=== PATIENT | male | born 1950 | race Caucasian/White ===

== ENCOUNTER 2018-08-12 13:15 | Outpatient (REF) | payer MEDICARE, OTHER, SELFPAY ==
[2018-08-12 20:21] LABS: COMMENT (LAB VIEW ONLY) 99.29 mg/dL; Microalb ug/mg Crea 5.3 ug/mg Cr
== END 2018-08-12 13:35 ==
LOC: NCHCN 13:15
PROVIDERS: PCP Physician Assistant Medical; Visit Provider Physician Assistant Medical
DX: E11.9 Type 2 diabetes mellitus without complications (principal)
CPT/HCPCS: 82043; 82570

== ENCOUNTER 2020-11-24 18:45 | Outpatient (REF) | payer MEDICARE, OTHER, SELFPAY ==
[2020-11-24 18:52] LABS: COMMENT (LAB VIEW ONLY) 70.53 mg/dL; Microalb ug/mg Crea 4.4 ug/mg Cr
== END 2020-11-24 18:46 | disposition home or self-care (01) ==
LOC: NCHCN 18:45
PROVIDERS: PCP Physician Assistant Medical; Visit Provider Physician Assistant
DX: E11.9 Type 2 diabetes mellitus without complications (principal)
CPT/HCPCS: 82043; 82570

== ENCOUNTER 2021-02-21 21:42 | Outpatient (REF) | payer MEDICARE, OTHER, SELFPAY ==
[2021-02-21 17:34] LABS: Hemoglobin A1C 6.4 % (<5.7)
[2021-02-21 17:48] LABS: ALT 23 U/L (16-63); AST 16 U/L (15-37); Albumin 3.4 g/dL (3.4-5.0); Alkaline Phosphatase 54 U/L (46-116); Anion Gap 7.9 mmol/L (3-11); BUN 20 mg/dL (7-18); Bilirubin, Total 0.3 mg/dL (0.2-1.0); CO2 28.1 mmol/L (21.0-32.0); CREATININE 1.1 mg/dL (0.70-1.30); Calcium 8.2 mg/dL (8.5-10.1); Calculated LDL 52 mg/dL (<100); Chloride 105 mmol/L (98-107); Cholesterol 113 mg/dL (<200); Glucose 104 mg/dL (74-106); HDL Cholesterol 49 mg/dL (40-60); Sodium 141 mmol/L (136-145); Total Protein 7.1 g/dL (6.4-8.2); Triglyceride 61 mg/dL (<150)
== END 2021-02-21 21:43 | disposition home or self-care (01) ==
LOC: NCHCN 21:42
PROVIDERS: PCP Physician Assistant Medical; Visit Provider Nurse Practitioner Family
DX: E11.9 Type 2 diabetes mellitus without complications (principal); I10 Essential (primary) hypertension; E78.2 Mixed hyperlipidemia
CPT/HCPCS: 80053; 80061; 83036

== ENCOUNTER → 2021-04-07 14:15 | Outpatient (BNVA) | payer MEDICARE, OTHER, SELFPAY | PROVIDERS: PCP Physician Assistant; Referring Provider Physician Assistant Medical; Visit Provider Physical Therapy Assistant | DX: Z12.11 Encounter for screening for malignant neoplasm of colon (principal); E11.9 Type 2 diabetes mellitus without complications; I10 Essential (primary) hypertension ==

== ENCOUNTER 2021-04-21 09:57 | Day surgery (SDC) | payer MEDICARE, OTHER, SELFPAY ==
[2021-04-21 10:05] VITALS: BP 124/74; PULSE 56; RESP 18; TEMP 36.6; O2SAT 97
[2021-04-21] MEDS: Lactated Ringers 1,000 ML 80 ML IV (10:34)
--- NOTE | 2021-04-21 11:15 | W.ANESPRE ---
General Info Date of Service Date Performed: 04/21/21 Height: 6 ft Weight: 104.1 kg Body Mass Index (BMI): 31.1 Surgical Procedure: Operation Date: 04/21/21 10:50 Proposed Procedures Side Surgeon p Colonoscopy, POSSIBLE HEMORRHOID BANDING Lala Doty, DO Meds Allergies and Home Medications Allergies Allergy/AdvReac Type Severity Reaction Status Date / Time pollen extracts Allergy Intermediate Verified 04/21/21 10:13 Home Medication Medication Instructions Recorded albuterol sulfate 90 mcg/actuation 2 puff INHALATION Q6H PRN 01/04/21 aerosol inhaler calcium carbonate 200 mg calcium 200 mg PO QID 01/04/21 (500 mg) chewable tablet ferrous sulfate 325 mg (65 mg 325 mg PO DAILY 01/04/21 iron) tablet fluticasone propionate 50 1 spray INTRANASAL DAILY 01/04/21 mcg/actuation nasal spray,suspension hydrochlorothiazide 12.5 mg capsule 12.5 mg PO DAILY 01/04/21 naproxen sodium 220 mg tablet 220 mg PO BID PRN 01/04/21 omeprazole 20 mg capsule,delayed 20 mg PO DAILY 01/04/21 release rosuvastatin 20 mg tablet 20 mg PO DAILY 01/04/21 trolamine salicylate 10 % topical 1 applic TOPICAL DAILY PRN 01/04/21 cream bisacodyl 5 mg tablet,delayed 5 mg PO ONCE #4 tab 04/09/21 release polyethylene glycol 3350 17 238 g PO ONCE #238 g 04/09/21 gram/dose oral powder Current Visit Medications: Current Medications Generic Name Dose Route Start Last Admin Trade Name Freq PRN Reason Stop Dose Admin Hyoscyamine Sulfate 0.125 mg 04/21/21 10:39 Hyoscyamine 0.125 Mg Sl/Oral/Chew SL DIRECTED PRN Ringer's Solution 1,000 mls @ 80 mls/hr 04/21/21 06:00 04/21/21 10:34 IV 05/20/21 23:59 80 mls/hr INFUSION LEVI Administration IV Miscellaneous Supplies 1 each 04/21/21 06:00 Iv Access IV 05/20/21 23:59 DIRECTED LEVI Ondansetron HCl 4 mg 04/21/21 10:39 Ondansetron 4 Mg/2 Ml Vial IVP Q4H PRN PRN Nausea / Vomiting Sodium Chloride 0 ml 04/21/21 06:00 Normal Saline Flush 10 Ml Syr IV 05/20/21 23:59 PRN PRN Sodium Chloride 0 ml 04/21/21 06:00 Normal Saline 10 Ml Vial IJ 05/20/21 23:59 DIRECTED PRN Sterile Water 0 ml 04/21/21 06:00 Water,Injection,Sterile 10 Ml Vial IJ 05/20/21 23:59 DIRECTED PRN PFSH Medical History Medical History Actinic keratoses Arthritis Coronary arteriosclerosis Diabetes mellitus type II, controlled pt. denies this Diverticulosis Exercise induced bronchospasm pt. states he is unaware of this Hiatal hernia History of solar lentigo Hypertension Mixed hyperlipidemia Pain in right shoulder Restless leg syndrome Surgical History Surgical History (Updated 04/21/21 @ 10:09 by Amanda Amador) History of colonoscopy History of hernia repair Tobacco Smoking/Tobacco Use Status: Former Tobacco Use Alcohol Alcohol Intake: former Substance Use Substance use: Never Substance use type: does not use Vital Signs and Lab Results Vital Signs Most Recent Vital Signs in EMR: Most Recent Vital Signs Temp Pulse Resp BP Pulse Ox 36.6 C 56 L 18 124/74 97 04/21/21 10:05 04/21/21 10:05 04/21/21 10:05 04/21/21 10:05 04/21/21 10:05 Lab Results Blood Type / Crossmatch: No Data to Display Complete Blood Count: No Data to Display Complete Metabolic Panel: No Data to Display Liver Function Panel: No Data to Display Coagulation Panel: No Data to Display Cardiac Panel: No Data to Display Arterial Blood Gas: No Data to Display Venous Blood Gas: No Data to Display Pancreas Panel: No Data to Display Thyroid Panel: No Data to Display Infectious Disease: No Data to Display Blood Cultures: No Data to Display Toxicology Panel: No Data to Display Anesthesia Assessment and Plan Anesthesia History Personal History: No History of Anesthesia Complications Family History: No Family History of Anesthesia Complications Exercise Tolerance Exercise Tolerance: Metabolic Equivalents>4 Pertinent Negatives Pertinent Negatives: No Symptoms of GERD, No Major Cardiovascular Symptoms or Complaints, No Major Pulmonary Symptoms or Complaints and No History of CVA/TIA Cardiac & Pulmonary Exam Cardiac Exam: Normal S1/S2 Heart Sounds Pulmonary Exam: Clear Bilateral Breath Sounds Airway Exam Known Difficult Airway: No Mallampati Class: 1 Mouth Opening: Normal (> 3cm) Thyromental Distance: Greater than 3 cm Neck Range of Motion: Full ROM Neck Circumference: Normal Teeth Condition: Normal Dentition ASA Classification ASA Score: ASA 2 Emergency Case?: No NPO Status NPO Status: NPO Clears >2 hours, Solids >8 hours Anesthesia Plan Resuscitation Status: Full Code Anesthesia Technique: General Anesthesia Airway Planned: Natural Airway Monitors Used: Standard Monitors
[2021-04-21 11:30] VITALS: BMI 31.1
[2021-04-21 13:03] VITALS: BP 89/54; PULSE 49; RESP 14; TEMP 36.3; O2SAT 96
--- NOTE | 2021-04-21 13:08 | W.ANESPOSTOP ---
Postoperative Evaluation Date, Time and Location Date Performed: 04/21/21 Time Performed: 13:08 Patient Location: Day Surgery Unit Vital Signs Most Recent Imported Vital Signs: Most Recent Vital Signs Temp Pulse Resp BP Pulse Ox 36.3 C L 49 L 14 89/54 L 96 04/21/21 13:03 04/21/21 13:03 04/21/21 13:03 04/21/21 13:03 04/21/21 13:03 Pain Score Most Recent Pain Score: Most Recent Pain Score Pain Level 0 04/21/21 13:03 Assessment Mental Status: Arousable with meaningful communication Airway and Respiratory Function: Patent airway with normal (patient baseline) respiratory exam Cardiovascular Function: Hemodynamically Stable Hydration Status: Adequately Hydrated Nausea & Vomiting: No Nausea or Vomiting Pain: Pt. Denies Any Pain Peripheral Nerve Block: Patient did not receive a nerve block
--- NOTE | 2021-04-21 13:15 | DSE_ITS ---
Date of service: 04/21/21 Time of Service: 13:15 DS: Diagnosis Discharge Diagnosis (1) Adenomatous colon polyp: Status: Acute Discharge Plan Disposition Patient Disposition: HOME Condition: Good Discharge Details Reason For Visit: colon Attending Provider: Lala Doty Primary Care Provider: Esther Bianchi Home Meds and New Rx's Prescriptions: Continued calcium carbonate [Antacid (calcium carbonate)] 200 mg calcium (500 mg) tablet,chewable 200 mg PO QID RF: 0 naproxen sodium [Aleve] 220 mg tablet 220 mg PO BID PRNRF: 0 rosuvastatin 20 mg tablet 20 mg PO DAILY RF: 0 hydrochlorothiazide 12.5 mg capsule 12.5 mg PO DAILY RF: 0 omeprazole 20 mg capsule,delayed release(DR/EC) 20 mg PO DAILY RF: 0 albuterol sulfate [ProAir HFA] 90 mcg/actuation HFA aerosol inhaler 2 puff inhalation Q6H PRNRF: 0 ferrous sulfate 325 mg (65 mg iron) tablet 325 mg PO DAILY RF: 0 fluticasone propionate [Allergy Relief (fluticasone)] 50 mcg/actuation spray,suspension 1 spray intranasal DAILY RF: 0 trolamine salicylate [Asper-Flex] 10 % cream 1 applic topical DAILY PRNRF: 0 Discontinued bisacodyl [Dulcolax (bisacodyl)] 5 mg tablet,delayed release (DR/EC) 5 mg PO ONCE Qty: 4 RF: 0 polyethylene glycol 3350 17 gram/dose powder 238 g PO ONCE Qty: 238 RF: 0 Discharge Instructions Additional Instructions: DSU Colonoscopy Post- Op Instructions Instructions for Everyone who is given Anesthesia: For your safety, please do the following for the next twenty-four (24) hours: *Do Not operate a motor vehicle (car, truck, motorcycle, etc.) *Do Not drink alcoholic beverages or use any recreational drugs for the first 24 hours or while taking pain medications. The medications in your body may have a reaction that can be dangerous. *Do Not make any important decisions or sign any important papers. Findings: diverticular Dx. No polyps Follow up: Does not require any further colonoscopies unless develops problems with including: Persistent rectal bleeding, unexplained weight loss, change in bowel habits. -Follow a high-fiber diet and avoid straining to move your bowels-the 1. No lifting over 20 pounds or strenuous activity for the first 24 hours after your procedure. After 24 hours there are no restrictions on your activity but you may feel fatigued for a few days. 2. After you arrive home you may have a light meal and return to your normal diet as you can tolerate it without feeling sick to your stomach. 3. You may have a bloated, gaseous feeling in your belly (abdomen) after a colonoscopy. Passing gas and belching will help. Walking or lying down on your left side with your knees flexed may relieve the discomfort. Call the office at [phone] (Office) or [phone] (Hospital) right away if you notice any of the following: a.Vomiting of blood or ?coffee ground stools?. b.Rectal bleeding 1Tbsp, blood clots or continuous bleeding. c.Severe belly (abdominal) pain. d.A hard distended belly (abdomen) and an inability to pass gas. 4. Please don?t expect to have a normal BM (bowel movement) for 2-3 days after your procedure. 5. If there are questions regarding the findings of your procedure, please contact your doctor 6. If you are unable to contact your doctor with a problem, contact the hospital at [phone]. 7. Continue all your regular medications unless directed otherwise. I understand the above instructions and have no questions. Signature of Patient or Adult Escort Name of Responsible Adult Escort Signature of Nurse Date/Time Activity:: see above Diet:: see above Discharge Orders Discharge Orders: Discharge Order (Routine); Ordered 04/21/21 Ordered By: Lala Doty DS: Data Vitals/I&O Vitals and I&O: Vital Signs Temperature 36.3 C L 04/21/21 13:03 Pulse 49 L 04/21/21 13:03 Pulse Rhythm Regular 04/21/21 10:05 Respiratory Rate 14 04/21/21 13:03 Respiratory Depth Normal 04/21/21 10:05 Blood Pressure 89/54 L 04/21/21 13:03 Pulse Oximetry 96 04/21/21 13:03 Oxygen Delivery Method Room Air 04/21/21 13:03 Oxygen Flow Rate 0 04/21/21 10:05 Pain Level 0 04/21/21 13:03 Intake & Output 04/20/21 04/21/21 04/21/21 23:59 11:59 23:59 Intake Total 600 / 600 Balance 600 / 600 Weight 104.1 kg Intake: IV 600 / 600 Other: Emesis Description None PFSH Medical History (Updated 04/21/21 @ 13:16 by Lala Doty DO) Actinic keratoses Arthritis Coronary arteriosclerosis Diabetes mellitus type II, controlled pt. denies this Diverticulosis Exercise induced bronchospasm pt. states he is unaware of this Hiatal hernia History of solar lentigo Hypertension Mixed hyperlipidemia Pain in right shoulder Restless leg syndrome Surgical History (Updated 04/21/21 @ 10:09 by Amanda Amador) History of colonoscopy History of hernia repair Social History Smoking/Tobacco Use Status: Former Tobacco Use Quit Date: 10/07/92 Smoking risk assessment performed?: Yes Alcohol Intake: former Drug use: Never Substance use type: does not use Current gender identity: male Do you feel safe at home: Yes Do you feel safe in your relationship?: Yes
--- NOTE | 2021-04-21 13:21 | PDOC.DSDIS_ITS ---
Discharge Plan Disposition Patient Disposition: HOME Condition: Good Discharge Details Reason For Visit: colon Attending Provider: Lala Doty Primary Care Provider: Esther Bianchi Home Meds and New Rx's Prescriptions: Continued calcium carbonate [Antacid (calcium carbonate)] 200 mg calcium (500 mg) tablet,chewable 200 mg PO QID RF: 0 naproxen sodium [Aleve] 220 mg tablet 220 mg PO BID PRNRF: 0 rosuvastatin 20 mg tablet 20 mg PO DAILY RF: 0 hydrochlorothiazide 12.5 mg capsule 12.5 mg PO DAILY RF: 0 omeprazole 20 mg capsule,delayed release(DR/EC) 20 mg PO DAILY RF: 0 albuterol sulfate [ProAir HFA] 90 mcg/actuation HFA aerosol inhaler 2 puff inhalation Q6H PRNRF: 0 ferrous sulfate 325 mg (65 mg iron) tablet 325 mg PO DAILY RF: 0 fluticasone propionate [Allergy Relief (fluticasone)] 50 mcg/actuation spray,suspension 1 spray intranasal DAILY RF: 0 trolamine salicylate [Asper-Flex] 10 % cream 1 applic topical DAILY PRNRF: 0 Discontinued bisacodyl [Dulcolax (bisacodyl)] 5 mg tablet,delayed release (DR/EC) 5 mg PO ONCE Qty: 4 RF: 0 polyethylene glycol 3350 17 gram/dose powder 238 g PO ONCE Qty: 238 RF: 0 Discharge Instructions Additional Instructions: DSU Colonoscopy Post- Op Instructions Instructions for Everyone who is given Anesthesia: For your safety, please do the following for the next twenty-four (24) hours: *Do Not operate a motor vehicle (car, truck, motorcycle, etc.) *Do Not drink alcoholic beverages or use any recreational drugs for the first 24 hours or while taking pain medications. The medications in your body may have a reaction that can be dangerous. *Do Not make any important decisions or sign any important papers. Findings: diverticular Dx. No polyps Follow up: Does not require any further colonoscopies unless develops problems with including: Persistent rectal bleeding, unexplained weight loss, change in bowel habits. -Follow a high-fiber diet and avoid straining to move your bowels-the 1. No lifting over 20 pounds or strenuous activity for the first 24 hours after your procedure. After 24 hours there are no restrictions on your activity but you may feel fatigued for a few days. 2. After you arrive home you may have a light meal and return to your normal diet as you can tolerate it without feeling sick to your stomach. 3. You may have a bloated, gaseous feeling in your belly (abdomen) after a colonoscopy. Passing gas and belching will help. Walking or lying down on your left side with your knees flexed may relieve the discomfort. Call the office at [phone] (Office) or [phone] (Hospital) right away if you notice any of the following: a.Vomiting of blood or ?coffee ground stools?. b.Rectal bleeding 1Tbsp, blood clots or continuous bleeding. c.Severe belly (abdominal) pain. d.A hard distended belly (abdomen) and an inability to pass gas. 4. Please don?t expect to have a normal BM (bowel movement) for 2-3 days after your procedure. 5. If there are questions regarding the findings of your procedure, please contact your doctor 6. If you are unable to contact your doctor with a problem, contact the hospital at [phone]. 7. Continue all your regular medications unless directed otherwise. I understand the above instructions and have no questions. Signature of Patient or Adult Escort Name of Responsible Adult Escort Signature of Nurse Date/Time Activity:: see above Diet:: see above Discharge Orders Discharge Orders: Discharge Order (Routine); Ordered 04/21/21 Ordered By: Lala Doty DS: Diagnosis Discharge Diagnosis (1) Adenomatous colon polyp: Status: Acute
[2021-04-21 13:25] VITALS: BP 109/71; PULSE 50; RESP 16; TEMP 36.3; O2SAT 96
--- NOTE | 2021-04-21 23:35 | W.COLOREPORT ---
Date of service: 04/21/21 Time of Service: 12:35 Colonoscopy Report Date of procedure: 04/21/21 Pre-op diagnosis general: A. polyps Post-op diagnosis procedure note: other (divertic) Surgeon: Lala Doty Anesthesia Type: General:No Airway Estimated blood loss (mL): 0 Pathology: none sent Complications: None Disposition: same day Prep: Miralax/Dulcolax Retraction Time: 8 Procedure Description: After informed consent was obtained the patient was taken to the procedure room and placed in a left decubitous position. Monitors were applied and a time out was done. The patients name, date of , procedure, allergies to medications and metal in their body was reviewed. The patient was then sedated. Once sedated and comfortable a rectal exam was done. External exam was normal. Internal exam revealed a normal sphincter tone and no palpable masses. The scope was then introduced and retrofelexed. no internal hemorrhoids were identified. The scope was then advanced to the cecum w/out difficulty. The TI and appendiceal orifice were identified. The prep was adequate. There was adherent stools throught out the colon. this was extensively lavaged, but lesions <5mm coud be missed. No polyps are visualized today. . The scope was then slowly retracted over 8 minutes back into the rectum. he has moderate diverticular Dx confined to the sigmoid colon. There is no active bleeding orinfection. The scope was removed and the patient was woken up and taken back to Same day surgery in stable condition. The patient tolerated the procedure well and there were no immediate complications. Follow up: The patient does not require any further screening CE's, unless they develop changes in bowel habits or other new gastrointestinal complaints.
== END 2021-04-21 13:55 | disposition home or self-care (01) ==
PROVIDERS: PCP Physician Assistant; Visit Provider Surgery
PROC: 0DJD8ZZ Inspection of Lower Intestinal Tract, Via Natural or Artificial Opening Endoscopic (ICD-10-PCS; CPT 45378; principal; 2021-04-21 10:45)
DX: Z12.11 Encounter for screening for malignant neoplasm of colon (principal); K57.30 Diverticulosis of large intestine without perforation or abscess without bleeding; E11.9 Type 2 diabetes mellitus without complications
CPT/HCPCS: G0121

== ENCOUNTER 2021-06-01 04:05 | Outpatient (CLI) | payer MEDICARE, OTHER, SELFPAY ==
[2021-06-01] MEDS: Inhaler, Assist Device 1 EACH MC (14:16)
[2021-06-01] MEDS: Albuterol HFA 18 GM 200 PUFF INH IH (14:16)
--- NOTE | 2021-06-02 11:29 | W.PFT ---
Date of service: 06/01/21 Time of Service: 12:59 Pulmonary Function Test Result Requesting Provider Esther Bianchi Interpretation Spirometry: There is no airflow limitation. There is no significant bronchodilator response. Lung Volumes: Lung volumes are normal. Diffusion Capacity: Uncorrected diffusion is normal. Airway Pressure: Airways resistance is normal. Impression Normal pulmonary function tests. Clinical Correlation therefore is recommended.
== END 2021-06-01 04:06 | disposition home or self-care (01) ==
PROVIDERS: PCP Physician Assistant; Visit Provider Physician Assistant
DX: R06.02 Shortness of breath (principal)
CPT/HCPCS: 94060; 94726; 94729

== ENCOUNTER 2022-03-13 11:56 | Outpatient (REF) | payer MEDICARE, OTHER, SELFPAY ==
[2022-03-13 19:08] LABS: Anion Gap 7.1 mmol/L (3-11); BUN 15 mg/dL (7-18); CO2 27.9 mmol/L (21.0-32.0); CREATININE 1.1 mg/dL (0.70-1.30); Calcium 8.7 mg/dL (8.5-10.1); Chloride 103 mmol/L (98-107); Glucose 113 mg/dL (74-106); Potassium 4.2 mmol/L (3.5-5.1); Sodium 138 mmol/L (136-145)
[2022-03-13 20:04] LABS: COMMENT (LAB VIEW ONLY) 43.49 mg/dL; Microalb ug/mg Crea 6.4 ug/mg Cr
== END 2022-03-13 11:57 | disposition home or self-care (01) ==
LOC: NCHCN 11:56
PROVIDERS: PCP Physician Assistant; Visit Provider Physician Assistant
DX: E11.9 Type 2 diabetes mellitus without complications (principal)
CPT/HCPCS: 80048; 82043; 82570

== ENCOUNTER 2022-06-07 04:43 | Outpatient (RCR) | payer MEDICARE, OTHER, SELFPAY ==
[2022-06-07 12:17] LABS: Abs Immature Grans 0.01 10^3/uL (0.0-0.06); Absolute Basophil Count 0.03 10^3/uL (0.0-0.2); Absolute Eosinophil Count 0.16 10^3/uL (0.0-0.7); Absolute Lymphocyte Count 0.78 10^3/uL (1.2-3.4); Absolute Monocyte Count 0.55 10^3/uL (0.1-0.8); Absolute Neutrophil Count 3.33 10^3/uL (1.2-6.7); Basophils % 0.6; Eosinophils % 3.3; HCT 36.8 % (40.0-50.0); HGB 12.7 g/dL (13.5-17.5); Immature Grans % 0.2; MCHC 34.5 % (32.0-36.0); MCV 84 fL (80-95); MPV 10.7 fL (8.0-11.0); Monocytes % 11.3; Neutrophils % 68.6; Platelet Count 178 10^3/uL (130-400); RBC 4.38 10^6/uL (4.36-5.78); RDW 15.1 % (11.8-14.1); RDW-SD 46.3 fL; WBC 4.86 10^3/uL (4.4-10.8)
[2022-06-07 12:53] LABS: Ferritin 8 ng/mL (26-388); TSH 1.55 uIU/mL (0.36-3.74)
[2022-06-07 15:46] LABS: Iron 51 ug/dL (65-175); Total Iron Binding Capacity 324 ug/dL (250-450); Transferrin Sat 16 % (20-55)
[2022-06-15 10:56] LABS: Testosterone, Free 10.9 ng/dL (3.28-12.2); Testosterone, Total 485 ng/dL (240-950)
== END 2022-07-06 23:59 | disposition home or self-care (01) ==
LOC: INF 04:43
PROVIDERS: PCP Physician Assistant; Visit Provider Internal Medicine
DX: D64.9 Anemia, unspecified (principal); N40.1 Benign prostatic hyperplasia with lower urinary tract symptoms; R53.83 Other fatigue
CPT/HCPCS: 36415; 84153; 84402; 84403; 82728; 83540; 83550; 84443; 85025

== ENCOUNTER 2022-08-13 20:55 | Outpatient (REF) | payer MEDICARE, OTHER, SELFPAY ==
[2022-08-13 21:32] LABS: Bilirubin Negative (Negative); Blood Small (Negative); Clarity Clear (Clear); Glucose Negative (Negative); Ketones Negative (Negative); Leukocyte Esterase Negative (Negative); Nitrite Negative (Negative); Urobilinogen 0.2 EU/dL (Up TO 0.2)
[2022-08-13 21:45] LABS: Bacteria Negative HPF (Negative); C & S Indicated? No; Casts Negative LPF (Negative); Crystals Negative HPF (Negative); Epithelial Cells Rare HPF (Negative); Mucus Negative (Negative); WBC 0-2 HPF (0-5)
== END 2022-08-13 20:56 | disposition home or self-care (01) ==
LOC: LBN 20:55
PROVIDERS: PCP Physician Assistant; Visit Provider Internal Medicine
DX: D64.9 Anemia, unspecified (principal)
CPT/HCPCS: 81003; 81015

== ENCOUNTER → 2022-08-15 02:36 | Outpatient (CLI) | payer MEDICARE, SELFPAY ==
--- NOTE | 2022-08-15 | DI.RAD_ITS ---
Exam(s) XR CERVICAL SPINE COMP 4-5V EXAM: XR CERVICAL SPINE COMP 4-5V CLINICAL HISTORY: NECK PAIN. TECHNIQUE: 2D digital imaging was performed. Seven images were obtained. AP, odontoid, lateral and b ilateral oblique images were obtained. COMPARISON: No exams were available for comparison FINDINGS: The odontoid is intact. The lateral masses are well aligned. There is straightening of the normal ce rvical lordosis. There is disc space narrowing and endplate osteophytes at C5-C6. No acute fracture or subluxation is present. There is mild narrowing of the neural foramen at C5-C6 bilaterally. Hyper trophic changes of the facets are noted, left greater than right. The cervical thoracic junction is well maintained. The prevertebral soft tissues are unremarkable. Lung apices are clear. IMPRESSION: Cervical spondylosis most marked at the C5-C6 level. DATA REPOSITORY: RADIATION DOSE DELIVERED:
--- NOTE | 2022-08-15 | DI.RAD_ITS ---
Exam(s) XR LUMBAR SPINE COMPLETE EXAM: XR LUMBAR SPINE COMPLETE CLINICAL HISTORY: BACK PAIN. TECHNIQUE: 2D digital imaging was performed of the lumbar spine. Five images were obtained. AP, la teral, right oblique, left oblique and L5-S1 spot views were obtained. COMPARISON: No exams were available for comparison FINDINGS: BONES: No fracture or destructive lesion. There are endplate osteophytes at multiple levels of the elida mbar spine. Degenerative changes of the facets are seen at L4-5 and L5-S1. DISKS: Intervertebral disc spaces are maintained. ALIGNMENT: Lumbar spinal alignment is within normal limits. No spondylolysis or spondylolisthesis. SOFT TISSUE: Atherosclerosis is present. IMPRESSION: Lumbar spondylosis. DATA REPOSITORY: RADIATION DOSE DELIVERED:
== END ==
PROVIDERS: PCP Physician Assistant; Visit Provider Internal Medicine
DX: M47.816 Spondylosis without myelopathy or radiculopathy, lumbar region (principal); M47.812 Spondylosis without myelopathy or radiculopathy, cervical region
CPT/HCPCS: 72050; 72110

== ENCOUNTER 2022-10-15 16:02 | Outpatient (CLI) | payer MEDICARE, SELFPAY ==
[2022-10-15 14:44] LABS: Abs Immature Grans 0.02 10^3/uL (0.0-0.06); Absolute Basophil Count 0.03 10^3/uL (0.0-0.2); Absolute Eosinophil Count 0.16 10^3/uL (0.0-0.7); Absolute Lymphocyte Count 1.37 10^3/uL (1.2-3.4); Absolute Monocyte Count 0.81 10^3/uL (0.1-0.8); Absolute Neutrophil Count 3.97 10^3/uL (1.2-6.7); Basophils % 0.5; Eosinophils % 2.5; HCT 42.4 % (40.0-50.0); HGB 14.9 g/dL (13.5-17.5); Immature Grans % 0.3; Lymphocytes % 21.5; MCH 31.8 pg (27.0-33.0); MCHC 35.1 % (32.0-36.0); MCV 91 fL (80-95); MPV 10.1 fL (8.0-11.0); Monocytes % 12.7; Neutrophils % 62.5; Platelet Count 143 10^3/uL (130-400); RBC 4.68 10^6/uL (4.36-5.78); RDW 13.8 % (11.8-14.1); RDW-SD 45.5 fL; WBC 6.36 10^3/uL (4.4-10.8)
[2022-10-15 15:15] LABS: Ferritin 54 ng/mL (26-388)
[2022-10-15 16:31] LABS: Iron 149 ug/dL (65-175); Total Iron Binding Capacity 291 ug/dL (250-450); Transferrin Sat 51 % (20-55)
== END 2022-10-15 16:03 | disposition home or self-care (01) ==
LOC: LBO 16:03
PROVIDERS: PCP Physician Assistant; Visit Provider Internal Medicine
DX: D64.9 Anemia, unspecified (principal)
CPT/HCPCS: 36415; 82728; 83540; 83550; 85025

== ENCOUNTER 2022-10-31 08:56 | Outpatient (REF) | payer MEDICARE, SELFPAY | END 2022-11-01 08:01 | disposition home or self-care (01) | LOC: LBN 08:56 | PROVIDERS: PCP Physician Assistant; Visit Provider Internal Medicine | DX: D64.9 Anemia, unspecified (principal) | CPT/HCPCS: 82272 ==

== ENCOUNTER 2023-04-04 01:21 | Outpatient (CLI) | payer MEDICARE, SELFPAY ==
--- NOTE | 2023-04-04 09:00 | ETT_ITS ---
APPROVED REPORT Exam: Exercise Treadmill Patient Location: Out-Patient Room/Bed: Stress Nurse: Fely Basurto RN Ordering Provider:WINSTONArminda NAIR, Contact Number: [phone] BMI: 32.07 Baseline Rhythm: Sinus Bradycardia Comment: Prolonged TX interval Indications: SOB Medical History Medical History: HTN, Dyspnea, HLD, iron deficiency anemia, Cardiac Medications: Zolpidem, tamsulosin, hydrochlorathiazide, rosuvastatin Allergies: None known Cardiac Risk Factors: Family hx, HTN, HLD, Prediabetes, former smoker (quit 1992) Previous Cardiac Procedures: Cardiac cath 2015 Pretest Chest Pain Characteristics: None Exercise History: Physically active Physical Disabilities: None Lung Sounds: Clear to auscultation Heart Sounds: Regular Stress Test Details Test: Exercise stress testing was performed using a Murtaza protocol. Rest Stress HR Resting HR Supine: 48 bpm Max Heart Rate (APMHR): 146 bpm Resting HR Standin bpm Target HR (85% APMHR): 124 bpm Max HR Achieved: 86 bpm % of APMHR: 59 Recovery HR: 63 bpm HR response to stress: Normal HR response to stress BP Resting BP Supine: 146/84 mmHg Resting BP Standin/88 mmHg Max BP: 184/80 mmHg Recovery BP: 168/78 mmHg BP response to stress: Normal blood pressure response to stress. ECG Resting ECG: Sinus Bradycardia, 1st degree AV block Ectopy: None Comment: Stress ECG: Sinus Rhythm, 1st degree AV block ST Change: Nondiagnostic low heart rate Arrhythmia: None Recovery ECG: Sinus Rhythm, 1st degree AV block Recovery ST Change: Nondiagnostic low heart rate Recovery Arrhythmia: Rare PVC Clinical Reason for Termination: Lightheadedness, Dyspnea Stress Symptoms: mod-severe Lightheadedness (5/10), mod-severe dyspnea Exercise duration: 3 min21 sec Highest Stage Reached: Stage 2: 2.5 mph at 12% grade. Exercise capacity: 5.04 METs Angina Score: None Wong Treadmill Score: 2.7 Rate Pressure Product: [id number] Stress ECG Conclusion 1. Resting electrocardiogram showed first-degree AV block 2. Patient exercised on the Murtaza protocol and completed a workload of 5.04 METS 3. Blunted heart rate response to exercise. Peak heart rate achieved was 59% of predicted for age. Normal blood pressure response to exercise 4. The electrocardiographic portion of the test was nondiagnostic due to inadequate heart rate Wong Treadmill Score is 2.7 which is Moderate risk. Stress Test Summary STAGE Time (mins) Speed (mph) Grade (%) HR BP SpO2 SYMPTOMS METS Supine 48 164/88 98 Standing 49 146/84 98 1 3 1.7 10 73 148/84 Mod-severe lightheadedness (5/10), moderate- severe dyspnea 4.5 2 6 2.5 12 76 Mod-severe lightheadedness (5/10), moderate- severe dyspnea 7 1 min recovery 84 120/54 mod lightheadedness, moderate dyspnea 3 min recovery 66 184/80 98 Symptoms starting to resolve 6 min recovery 63 168/78 98 All symptoms resolved. ETT stopped due to moderate-severe lightheadedness reported by patient who requested to stop test. All stopped due to concern from staff regarding lightheadedness reported by patient.
== END 2023-04-04 01:41 ==
LOC: DI 01:21
PROVIDERS: PCP Physician Assistant; Visit Provider Internal Medicine
DX: R06.02 Shortness of breath (principal)
CPT/HCPCS: 93016; 93018; 93017

== ENCOUNTER 2023-04-24 08:15 | Outpatient (CLI) | payer MEDICARE, SELFPAY ==
[2023-04-24 08:26] LABS: Abs Immature Grans 0.01 10^3/uL (0.0-0.06); Absolute Basophil Count 0.03 10^3/uL (0.0-0.2); Absolute Eosinophil Count 0.16 10^3/uL (0.0-0.7); Absolute Lymphocyte Count 0.98 10^3/uL (1.2-3.4); Absolute Monocyte Count 0.55 10^3/uL (0.1-0.8); Absolute Neutrophil Count 2.84 10^3/uL (1.2-6.7); Basophils % 0.7; Eosinophils % 3.5; HCT 37.8 % (40.0-50.0); HGB 13.2 g/dL (13.5-17.5); Immature Grans % 0.2; Lymphocytes % 21.4; MCH 33.2 pg (27.0-33.0); MCHC 34.9 % (32.0-36.0); MCV 95 fL (80-95); MPV 10.5 fL (8.0-11.0); Neutrophils % 62.2; Platelet Count 120 10^3/uL (130-400); RBC 3.97 10^6/uL (4.36-5.78); RDW 12.7 % (11.8-14.1); RDW-SD 44.6 fL; WBC 4.57 10^3/uL (4.4-10.8)
[2023-04-24 09:21] LABS: ALT 25 U/L (16-63); AST 21 U/L (15-37); Albumin 3.2 g/dL (3.4-5.0); Alkaline Phosphatase 62 U/L (46-116); Anion Gap 6.5 mmol/L (3-11); BUN 17 mg/dL (7-18); Bilirubin, Total 0.3 mg/dL (0.2-1.0); CO2 27.5 mmol/L (21.0-32.0); Calcium 8.1 mg/dL (8.5-10.1); Chloride 109 mmol/L (98-107); Estimated GFR 78.98 (mL/min/1.73m2); Glucose 110 mg/dL (74-106); Sodium 143 mmol/L (136-145); Total Protein 6.9 g/dL (6.4-8.2)
[2023-04-24 11:04] LABS: Calculated LDL 44 mg/dL (<100); Cholesterol 105 mg/dL (<200); HDL Cholesterol 55 mg/dL (40-60); Triglyceride 34 mg/dL (<150)
== END 2023-04-24 08:16 | disposition home or self-care (01) ==
LOC: LBO 08:16
PROVIDERS: PCP Physician Assistant; Visit Provider Internal Medicine
DX: I10 Essential (primary) hypertension (principal); N40.0 Benign prostatic hyperplasia without lower urinary tract symptoms
CPT/HCPCS: 36415; 80053; 80061; 85025

== ENCOUNTER 2023-05-06 00:34 | Outpatient (CLI) | payer MEDICARE, SELFPAY ==
--- NOTE | 2023-05-06 | DI.NM_ITS ---
APPROVED REPORT Exam: Pharmacologic Patient Location: Out-Patient Room/Bed: Stress Nurse: Fely Basurto RN Ordering Provider:WINSTON KOREY, Contact Number: [phone] BMI: 32.07 Baseline Rhythm: Sinus Bradycardia Comment: Occasional PVC's Indications: Angina Medical History Medical History: Corany artriosclerosis, DMT2, diverticulosis, exercise induced bronchospasm, hiatal hernia, HTN, mixed hyperlipidemia, R shoulder pain Cardiac Medications: Rosuvastatin, naproxen, omerpazole, hydrochlorathiazide, ferrous sulfate, calciu m carbonate, albuterol sulfate Allergies: Pollen Cardiac Risk Factors: Family hx, HTN, HLD, former smoker, obesity Previous Cardiac Procedures: Cardiac cath x 8 years ago Pretest Chest Pain Characteristics: None Exercise History: Indeterminate Physical Disabilities: None Lung Sounds: Clear to auscultation Heart Sounds: Bradycardia Stress Test Details Test: Pharmacologic stress was paired with low level exercise. Reason for pharmacologic stress test: Low HR. Nuclear Acquisition: Rest Tc-99m/Stress Tc-99m 1 day Rest Isotope: Tc-99m Sestamibi. Dose: 12.0 Date: 05/06/2023 Injection Time: 0930 Stress Isotope: Tc-99m Sestamibi. Dose: 37.0 Date: 05/06/2023 Injection Time: 1104 HR Resting HR Supine: 46 bpm Max Heart Rate (APMHR): 146.360160 bpm Resting HR Standin bpm Target HR (85% APMHR): 124.734848 bpm Max HR Achieved: 86 bpm % of APMHR: 58.90 Recovery HR: 66 bpm HR response to stress: Normal HR response to stress BP Resting BP Supine: 122/70 mmHg Resting BP Standin/72 mmHg Max BP: 142/78 mmHg Recovery BP: 142/78 mmHg ECG Resting ECG: Sinus Bradycardia Ectopy: PVC's Stress ECG: Sinus Rhythm ST Change: Nondiagnostic low heart rate Arrhythmia: Occasional PVC's Recovery ECG: Sinus Bradycardia Recovery ST Change: Nondiagnostic low heart rate Recovery Arrhythmia: Occasional PVC's Clinical Stress Symptoms: 3/10 jaw pain Angina Score: None Rate Pressure Product: [id number] Stress ECG Conclusion 1. Resting electrocardiogram was within normal limits. 2. patient underwent testing using a combination of low-level exercise and pharmacologic stress with regadenoson 3. Peak heart rate achieved was 59% of predicted for age 4. Electrocardiographic portion of the test was nondiagnostic 5. See MPI report Stress Test Summary STAGE HR BP SpO2 Symptoms NOTES Supine 46 122/70 98 Standing 48 126/72 98 1 min post Lexiscan injection 67 132/76 92 3/10 jaw pain 3 min post Lexiscan injection 76 134/72 97 3/10 jaw pain 6 min post Lexiscan injection 66 142/78 97 All symptoms resolved. MPI Conclusion Myocardial perfusion is normal, no ischemia or evidence of prior infarction EF is 55% with normal wall motion Radiologist Interpretation Radiologist agrees with Stitch Wheeler's Interpretation. Radiologist Interpretation by: Tip Cerda MD Interpretation Date/Time: 05/08/2023 10:32:39
[2023-05-06] MEDS: Regadenoson 0.4 MG/5 ML SYR IVP (11:29)
== END 2023-05-06 00:54 ==
LOC: DI 00:34
PROVIDERS: PCP Physician Assistant; Visit Provider Internal Medicine
DX: I20.9 Angina pectoris, unspecified (principal)
CPT/HCPCS: 78452; 93016; 93018; 93017; J2785

== ENCOUNTER 2023-11-29 01:32 | Outpatient (CLI) | payer MEDICARE, SELFPAY ==
[2023-11-29 11:43] LABS: Abs Immature Grans 0.02 10^3/uL (0.0-0.06); Absolute Basophil Count 0.02 10^3/uL (0.0-0.2); Absolute Eosinophil Count 0.12 10^3/uL (0.0-0.7); Absolute Lymphocyte Count 0.78 10^3/uL (1.2-3.4); Absolute Neutrophil Count 3.76 10^3/uL (1.2-6.7); Basophils % 0.4; Eosinophils % 2.3; HCT 39.1 % (40.0-50.0); HGB 13.5 g/dL (13.5-17.5); Immature Grans % 0.4; Lymphocytes % 14.7; MCH 32.3 pg (27.0-33.0); MCHC 34.5 % (32.0-36.0); MCV 94 fL (80-95); MPV 9.6 fL (8.0-11.0); Monocytes % 11.3; Neutrophils % 70.9; Platelet Count 148 10^3/uL (130-400); RBC 4.18 10^6/uL (4.36-5.78); RDW 13.2 % (11.8-14.1); Reticulocyte 2.1 % (0.5-2.4)
[2023-11-29 11:47] LABS: Bilirubin Negative (Negative); Blood Trace-intact (Negative); Clarity Clear (Clear); Glucose Negative (Negative); Ketones Negative (Negative); Leukocyte Esterase Negative (Negative); Nitrite Negative (Negative); Urobilinogen 0.2 mg/dL (Up to 0.2)
[2023-11-29 12:02] LABS: Bacteria Negative HPF (Negative); C & S Indicated? No; Crystals Negative HPF (Negative); RBC 0-2 HPF (0-2)
[2023-11-29 12:35] LABS: Iron 88 ug/dL (65-175); Total Iron Binding Capacity 264 ug/dL (250-450); Transferrin Sat 33 % (20-55)
[2023-11-29 12:37] LABS: ALT 26 U/L (16-63); AST 18 U/L (15-37); Albumin 3.3 g/dL (3.4-5.0); Alkaline Phosphatase 57 U/L (46-116); Anion Gap 7.8 mmol/L (3-11); BUN 15 mg/dL (7-18); Bilirubin, Total 0.4 mg/dL (0.2-1.0); CO2 29.2 mmol/L (21.0-32.0); CREATININE 1.1 mg/dL (0.70-1.30); Calcium 8.9 mg/dL (8.5-10.1); Chloride 101 mmol/L (98-107); Estimated GFR 70.44 (mL/min/1.73m2); Ferritin 61 ng/mL (26-388); Glucose 127 mg/dL (74-106); Potassium 4.5 mmol/L (3.5-5.1); Sodium 138 mmol/L (136-145); TSH 2.03 uIU/mL (0.36-3.74); Total Protein 7.3 g/dL (6.4-8.2)
[2023-12-02 10:46] LABS: Haptoglobin 216 mg/dL (32-197)
[2023-12-02 14:15] LABS: Albumin 52.8 % (55.8-66.1); Albumin g/dL 3.6 g/dL (3.6-5.2); Immunotyping, Serum (See Note); Monoclonal Spike 13.7 % (None Seen); Monoclonal Spike g/dL 0.9 g/dL (None Seen); Total Protein 6.9 g/dL (6.3-8.2)
[2023-12-02 14:29] LABS: Homocysteine 13.3 umol/L (5.0-13.9)
[2023-12-02 15:22] LABS: ANA Interpretation Negative (Negative)
[2023-12-02 17:42] LABS: Phospholipid Ab, IgG <9.4 GPL; Phospholipid Ab, IgM <9.4 MPL
[2023-12-04 12:54] LABS: Methylmalonic Acid 0.41 nmol/mL (<=0.40)
[2023-12-04 15:25] LABS: GPIIb/IIIa (Cell-1) Negative; GPIIb/IIIa (Cell-2) Negative; GPIV Negative; GPIa/IIa (Cell-1) Negative; GPIa/IIa (Cell-2) Negative; GPIb/IX Negative; HLA Class I Negative; IVIg in last month? No; Overall Result Negative; Platelet Count x 10(9)/L ? 148; Plt Transfusion in last 72hrs? No
== END 2023-11-29 01:33 | disposition home or self-care (01) ==
LOC: LBO 01:33
PROVIDERS: PCP Physician Assistant; Visit Provider Internal Medicine
DX: D69.6 Thrombocytopenia, unspecified (principal); D64.9 Anemia, unspecified
CPT/HCPCS: 36415; 80053; 80186; 83090; 86022; 86147; 81003; 81015; 82728; 83010; 83540; 83550; 84155; 84165; 84443; 85025; 85045; 86038; 86320

== ENCOUNTER 2024-01-15 05:43 | Outpatient (CLI) | payer MEDICARE, SELFPAY ==
[2024-01-15 12:27] LABS: Abs Immature Grans 0.02 10^3/uL (0.0-0.06); Absolute Basophil Count 0.03 10^3/uL (0.0-0.2); Absolute Eosinophil Count 0.17 10^3/uL (0.0-0.7); Absolute Lymphocyte Count 0.93 10^3/uL (1.2-3.4); Absolute Monocyte Count 0.61 10^3/uL (0.1-0.8); Absolute Neutrophil Count 3.19 10^3/uL (1.2-6.7); Basophils % 0.6; Eosinophils % 3.4; HCT 39.9 % (40.0-50.0); Immature Grans % 0.4; Lymphocytes % 18.8; MCH 32.7 pg (27.0-33.0); MCHC 35.1 % (32.0-36.0); MCV 93 fL (80-95); MPV 10.2 fL (8.0-11.0); Monocytes % 12.3; Neutrophils % 64.5; Platelet Count 141 10^3/uL (130-400); RBC 4.28 10^6/uL (4.36-5.78); RDW 12.9 % (11.8-14.1); RDW-SD 44.1 fL; WBC 4.95 10^3/uL (4.4-10.8)
[2024-01-15 13:16] LABS: Hemoglobin A1C 6.2 % (<5.7)
== END 2024-01-15 05:44 | disposition home or self-care (01) ==
LOC: LBO 05:43
PROVIDERS: PCP Physician Assistant; Visit Provider Internal Medicine
DX: E11.9 Type 2 diabetes mellitus without complications (principal); D51.8 Other vitamin B12 deficiency anemias
CPT/HCPCS: 36415; 83036; 85025

== ENCOUNTER 2024-06-02 11:12 | Emergency (ER) | payer MEDICARE, SELFPAY ==
[2024-06-02] VITALS (17 sets, daily range): BP systolic 114–169; BP diastolic 54–87; PULSE 52–68; RESP 12–24; TEMP 36.8; O2SAT 97–99
--- NOTE | 2024-06-02 11:00 | RT.EKG_ITS ---
APPROVED REPORT Exam: Resting ECG Reason for Exam: chest pain/sob Patient Location: E HR:58 bpm ECG Measurements Heart Rate 58 AXIS FL 219 P 37 QRSd 105 QRS 77 QT 459 T 28 QTc 450 Conclusion Sinus bradycardia...rate< 60 Ventricular premature complex...V complex w/ short R-R interval Borderline prolonged FL interval...FL >212, V-rate 50- 90
--- NOTE | 2024-06-02 11:32 | ED.GENADUL_ITS ---
Discharge Plan Disposition Patient Disposition: Home Condition: Stable Discharge Details Clinical Impression: Chest pain Primary Care Provider: Esther Bianchi ED Provider: Surjit Rothman Home Meds and New Rx's Prescriptions: Continued naproxen sodium [Aleve] 220 mg tablet 220 mg PO BID PRN rosuvastatin 20 mg tablet 20 mg PO DAILY hydrochlorothiazide 12.5 mg capsule 12.5 mg PO DAILY omeprazole 20 mg capsule,delayed release(DR/EC) 40 mg PO BID ferrous sulfate 325 mg (65 mg iron) tablet 325 mg PO DAILY montelukast [Singulair] 10 mg tablet 10 mg PO DAILY tamsulosin [Flomax] 0.4 mg capsule 0.4 mg PO DAILY Edluar 10 mg tablet, sublingual 10 mg sublingual QHS Discharge Instructions Additional Instructions: Your blood work and CAT scan did not show any concerning findings Follow-up with your primary care provider If you feel more ill, have severe worsening pain or difficulty breathing return to the emergency department for reevaluation HPI General Mode of arrival: ambulatory . Date/Time Provider Initiated Documentation: 06/02/24 11:14 . Limitations to Documentation: no limitations . Information obtained by: patient . History of Present Illness 74 year old M presents to the emergency department with the chief complaint of chest pain, described as moderate, Quality is described as stabbing, and is localized to the chest. Patient reports no radiation. Patient started experiencing this hour(s) (12) and it has been intermittent. No relieving factors improve symptom(s), No exacerbating factors reported . Patient notes no other symptoms.. Patient did receive the following treatments prior to arrival, none Related Data Home Medications ?Medication ?Instructions ?Recorded ?Confirmed ferrous sulfate 325 mg (65 mg 325 mg PO DAILY 01/04/21 06/02/24 iron) tablet hydrochlorothiazide 12.5 mg capsule 12.5 mg PO DAILY 01/04/21 06/02/24 naproxen sodium 220 mg tablet 220 mg PO BID PRN 01/04/21 06/02/24 (Aleve) omeprazole 20 mg capsule,delayed 40 mg PO BID 01/04/21 06/02/24 release rosuvastatin 20 mg tablet 20 mg PO DAILY 01/04/21 06/02/24 montelukast 10 mg tablet 10 mg PO DAILY 06/02/24 06/02/24 (Singulair) tamsulosin 0.4 mg capsule (Flomax) 0.4 mg PO DAILY 06/02/24 06/02/24 zolpidem 10 mg sublingual tablet 10 mg sublingual QHS 06/02/24 06/02/24 (Edluar) Allergies Allergy/AdvReac Type Severity Reaction Status Date / Time pollen extracts Allergy Intermediate Unknown Verified 06/02/24 11:21 General Stated Complaint: Chest Pain DENICE: 2 Review of Systems All systems reviewed & are unremarkable except as noted in HPI and below Constitutional Constitutional: Denies chills, Denies fever(s) and Denies weakness Cardiovascular Cardiovascular: Reports chest pain and Denies dyspnea Respiratory Respiratory: Denies cough and Denies dyspnea Gastrointestinal Gastrointestinal: Denies abdominal pain, Denies nausea and Denies vomiting Musculoskeletal Musculoskeletal: Denies joint swelling Neurologic Neurologic: Denies weakness Exam Const General: no acute distress Orientation: alert HENMT Head: normal to inspection Ears: external ears normal General nose exam: external nose normal Mouth: moist mucous membranes Eyes General: appearance normal, both eyes and all related structures Neck Neck: normal visual inspection Resp Effort & Inspection: normal respiratory effort and able to speak in complete sentences Auscultation: clear to auscultation bilaterally Cardio Jugular venous pressure: no JVD Rate: regular rate Skin General skin exam: no rashes or lesions noted Neuro General: patient alert and patient oriented x3 Extrem General: normal to inspection Psych Mental Status: mental status grossly normal Course Vital Signs Vital signs: Vital Signs Temperature 36.8 C 06/02/24 11:17 Pulse 60 06/02/24 11:17 Respiratory Rate 12 06/02/24 11:17 Blood Pressure 169/87 H 06/02/24 11:17 Pulse Oximetry 98 06/02/24 11:17 Temperature 36.8 C 06/02/24 11:17 Temperature Source Oral 06/02/24 11:17 Pulse 60 06/02/24 11:17 Respiratory Rate 12 06/02/24 11:17 Blood Pressure 169/87 H 06/02/24 11:17 Blood Pressure Position Sitting 06/02/24 11:17 Pulse Oximetry 98 06/02/24 11:17 Oxygen Delivery Method Room Air 06/02/24 11:17 Oxygen Flow Rate 0 06/02/24 11:17 Pain Level 0 06/02/24 11:17 Medical Decision Making 74-year-old male with history of hypertension, hyperlipidemia comes in with intermittent sharp anterior chest pain since last night. Denies any vomiting, diaphoresis, difficulty breathing. He currently has no pain. He appears well speaking in full sentences. He has clear lung sounds, no murmurs, soft nontender abdomen. SuspectThis could be chest wall pain with given his age and risk factors we will obtain a CBC, CMP, troponin given the pain is sharp will obtain CTA of chest for PE. Has no tearing back pain so doubt dissection and has equal peripheral pulses Labs and imaging unremarkable, patient asymptomatic, will obtain delta troponin. Delta troponin negative, patient stable and asymptomatic. Discussed results with him and given reassuring workup feel he is stable for discharge and can follow-up with his PCP and return precautions given Differential Diagnosis Differential Diagnosis: nstemi, chest wall pain, pe Medical Records Medical records reviewed: Yes I reviewed the patient's medical records. Lab Data Lab results reviewed: Yes I reviewed the patient's lab results. ECG Data Attestation: I personally reviewed and interpreted this ECG (s) as follows: Prior ECG tracings: not available for review Interpretation: sinus bradycardia, rate of 58 no stemi Quality:SDOH Health Related Social Needs: No Data to Display PFSH All Active Problems (Updated 06/02/24 @ 13:56 by Surjit Rothman MD) Chest pain (Acute) Diverticulosis (Acute) Adenomatous colon polyp (Acute) Medical History (Updated 06/02/24 @ 13:56 by Surjit Rothman MD) Coronary arteriosclerosis Mixed hyperlipidemia Hypertension Hiatal hernia Exercise induced bronchospasm pt. states he is unaware of this Restless leg syndrome Arthritis Diabetes mellitus type II, controlled pt. denies this Pain in right shoulder History of solar lentigo Actinic keratoses Surgical History (Updated 05/17/21 @ 15:02 by Jaja Herndon RN) History of colonoscopy (~04/21/21) History of hernia repair Social History Smoking/Tobacco Use Status: Former Tobacco Use Quit Date: 10/07/92 Smoking risk assessment performed?: Yes Alcohol Intake: former Drug use: Never Substance use type: does not use Housing: house Do you feel safe at home: Yes Do you feel safe in your relationship?: Yes
[2024-06-02 11:42] LABS: Abs Immature Grans 0.01 10^3/uL (0.0-0.06); Absolute Basophil Count 0.02 10^3/uL (0.0-0.2); Absolute Eosinophil Count 0.05 10^3/uL (0.0-0.7); Absolute Lymphocyte Count 0.67 10^3/uL (1.2-3.4); Absolute Monocyte Count 0.57 10^3/uL (0.1-0.8); Absolute Neutrophil Count 3.94 10^3/uL (1.2-6.7); Basophils % 0.4 %; HCT 41.1 % (40.0-50.0); HGB 14.3 g/dL (13.5-17.5); Immature Grans % 0.2 %; Lymphocytes % 12.7 %; MCH 32.4 pg (27.0-33.0); MCHC 34.8 % (32.0-36.0); MCV 93 fL (80-95); MPV 10.2 fL (8.0-11.0); Monocytes % 10.8 %; Neutrophils % 74.9 %; Platelet Count 142 10^3/uL (130-400); RBC 4.41 10^6/uL (4.36-5.78); RDW 12.3 % (11.8-14.1); RDW-SD 42.6 fL; WBC 5.26 10^3/uL (4.4-10.8)
[2024-06-02 11:55] LABS: INR 1.1 (0.9-1.1); PTT Activated 24.6 sec (23.6-32.8)
[2024-06-02 12:08] LABS: ALT 22 U/L (16-63); AST 19 U/L (15-37); Albumin 3.3 g/dL (3.4-5.0); Alkaline Phosphatase 58 U/L (46-116); Anion Gap 7.8 mmol/L (3-11); BUN 15 mg/dL (7-18); Bilirubin, Total 0.54 mg/dL (0.2-1.0); CO2 27.2 mmol/L (21.0-32.0); CREATININE 1.1 mg/dL (0.70-1.30); Calcium 8.8 mg/dL (8.5-10.1); Chloride 103 mmol/L (98-107); Estimated GFR 70.01 (mL/min/1.73m2); Glucose 122 mg/dL (74-106); Magnesium 1.9 mg/dL (1.8-2.4); Potassium 4.1 mmol/L (3.5-5.1); Sodium 138 mmol/L (136-145); TSH (W/Ref FT4) 2.04 uIU/mL (0.36-3.74); Total Protein 7.4 g/dL (6.4-8.2); Troponin I < 50 ng/L (< or =60)
--- NOTE | 2024-06-02 12:49 | DI.CT_ITS ---
Exam(s) CT CHEST PE CTA EXAM: CT CHEST PE CTA CLINICAL HISTORY: chest pain. TECHNIQUE: Imaging Protocol: CT angiography of the chest was performed using pulmonary embolus kourtney col. Multi planar reconstructions were performed. CONTRAST MATERIAL: Intravenous: Omnipaque 350 Contrast volume: 100 cc COMPARISON: No exams were available for comparison FINDINGS: CHEST: PULMONARY ARTERIES: There are no intraluminal filling defects to suggest acute pulmonary emboli. LUNGS: There are no infiltrates nor evidence of pulmonary infarction.. There are no pleural effusions . MEDIASTINUM: There is no hilar nor mediastinal adenopathy. Visualized thyroid unremarkable. CARDIAC: Heart size is upper normal. There is no pericardial effusion.Caliber of the thoracic aorta is within normal limits. There is no evidence of aortic dissection. There is no significant shift of the interventricular septum. PARTIALLY VISUALIZED UPPERMOST ABDOMEN: No obvious findings OSSEOUS: No significant osseous lesions.. IMPRESSION: 1. No evidence of acute pulmonary emboli. No evidence of pulmonary infarction. No infiltrates. No pleural effusions. No intrathoracic adenopathy. 2. No evidence of aortic dissection nor pericardial effusion. Heart size is normal. Report called by myself to ER physician 06/02/2024 1:15 p.m. RADIATION DOSE DELIVERED: 214.03mGy.cm Total DLP DATA REPOSITORY: All CT scans at this facility are submitted to the National Radiology Data Registry (NRDR) Dose Index Registry (DIR) with the [employer] (ACR). RADIATION OPTIMIZATION: All CT scans at this facility use at least one of these dose optimization te chniques: automated exposure control; mA and/or kV adjustment per patient size (includes targeted exa ms where dose is matched to clinical indication); or iterative reconstruction.
[2024-06-02] MEDS: Omnipaque 350 MG/ML 100 ML BTL IJ (12:50)
[2024-06-02] MEDS: Normal Saline - Diluent 50 ML VIAL IJ (12:51)
--- OUTSIDE RECORDS SUMMARY | 2024-06-02 14:32 | XMS_ITS | Clinical Summary ---
Author Organization [facility] Address [address] [place] [address] Care Team Providers Care Cutter Grind Tool Technician Name Role Phone Unknown, Provider Primary Care Provider + [phone] Allergies No known active allergies Medications Medication Sig Dispensed Refills Start Date End Date Status rosuvastatin (CRESTOR) 20 mg tablet Take 20 mg by mouth daily. Active hydroCHLOROthiazide (HYDRODIURIL) 12.5 mg tablet Take 12.5 mg by mouth daily. Active Omeprazole 20 mg tablet,delayed release (DR/EC) Take by mouth. Active calcium carbonate (TUMS) 200 mg calcium (500 mg) tablet,chewable Take 1 Tab by mouth 4 times daily as needed. Active Social History Tobacco Use Types Packs/Day Years Used Date Smoking Tobacco: Former Cigarettes Q uit: 05/22/1995 Smokeless Tobacco: Never Interpersonal Safety Answer Date Record ed Physically Hurt Never 05/22/2020 Verbally Threaten Not on file 05/22/2020 Sex and Gender Information Value Date Recorded Sex Assigned at Not on file Gender Identity Not on file Sexual Orientation Not on file Obstetrics History Last Filed Vital Signs Vital Sign Reading Time Taken Comments Blood Pressure - - Pulse 60 05/22/2020 1415 EDT Temperature 36.7 ??C (98 ??F) 05/22/2020 1415 EDT Respiratory Rate - - Oxygen Saturation 98% 05/22/2020 1415 EDT Inhaled Oxygen Concentration - - Weight - - Height - - Body Mass Index - - Plan of Treatment Health Maintenance Due Date Last Done Comments Hepatitis C Screen 1950 RSV Immunization ( o r 60+ Years) (1 - 1-dose 60+ series) 2009 Fall Risk Screening 2014 COVID-19 Vaccine (2022-24 season) 2023 Care Teams Cutter Grind Tool Technician Relationship Specialty Start Date End Date Unknown, Provider, PCP - General 05/22/20
--- OUTSIDE RECORDS SUMMARY | 2024-06-02 14:32 | XMS_ITS | Referral Summary ---
Author Organization [facility] Address [address] [place] [address] Care Team Providers Care Patch Finisher Name Role Phone Unknown, Provider Primary Care Provider + [phone] Allergies No known active allergies Medications Medication [...] on file Sexual Orientation Not on file Last Filed Vital Signs Vital Sign Reading Time Taken Comments Blood Pressure - - Pulse 60 05/22/2020 1415 EDT Temperature 36.7 ??C (98 ??F) 05/22/2020 1415 EDT Respiratory Rate - - Oxygen Saturation 98% 05/22/2020 1415 EDT Inhaled Oxygen Concentration - - Weight - - Height - - Body Mass Index - - Plan of Treatment Not on file Care Teams Patch Finisher Relationship Specialty Start Date End Date Unknown, Provider, PCP - General 05/22/20
--- OUTSIDE RECORDS SUMMARY | 2024-06-02 14:32 | XMS_ITS | Encounter Summary ---
Author Organization [facility] Address [address] [place] [address] Care Team Providers Care Metal Off Bearer Name Role Phone Unknown, Provider Primary Care Provider Encounter Details Date Type Department Care Team (Late st Contact Info) Description 11/29/2023 Lab Requisition [facility] Pathology & Laboratory Medicine - [facility] [address] [place] [address] Outr Resulting Lab, Provider Social History Tobacco Use Types Packs/Day Years Used Date Smoking Tobacco: Former Cigarettes Q uit: 05/22/1995 Smokeless Tobacco: Never Interpersonal Safety Answer Date Record ed Physically Hurt Never 05/22/2020 Verbally Threaten Not on file 05/22/2020 Sex and Gender Information Value Date Recorded Sex Assigned at Not on file Gender Identity Not on file Sexual Orientation Not on file documented as of this encounter Plan of Treatment Not on file documented as of this encounter Procedures Procedure Name Priority Date/Time Associated Diagnosis Comments SPEP WITH IMMUNOTYPING PERFORMABLE Today 11/29/2023 11:25 EST SPEP WITH IMMUNOTYPING Today 11/29/2023 11:25 EST ANTI NUCLEAR AB (IAN), IFA Today 11/29/2023 11:25 EST PROTEIN, TOTAL Today 11/29/2023 11:25 EST HOMOCYSTEINE Today 11/29/2023 11:25 EST HAPTOGLOBIN Today 11/29/2023 11:25 EST documented in this encounter Results * (ABNORMAL) SPEP WITH IMMUNOTYPING PERFORMABLE (11/29/2023 11:25 [facility]) Albumin % 52.8(L) 55.8 - 66.1 % 12/02/2023 14:11 [facility] Albumin g/dL 3.6 3.6 - 5.2 g/dL 12/02/2023 14:11 [facility] Alpha-1 % 3.9 2.9 - 4.9 % 12/02/2023 14:11 [facility] Alpha-1 g/dL 0.30 0.15 - 0.40 g/dL 12/02/2023 14:11 [facility] Alpha-2 % 12.4(H) 7.1 - 11.8 % 12/02/2023 14:11 [facility] Alpha-2 g/dL 0.90 0.50 - 1.00 g/dL 12/02/2023 14:11 [facility] Beta % 9.0 8.4 - 13.1 % 12/02/2023 14:11 [facility] Beta g/dL 0.60 0.60 - 1.20 g/dL 12/02/2023 14:11 [facility] Gamma % 21.9(H) 11.1 - 18.8 % 12/02/2023 14:11 [facility] Gamma g/dL 1.50 0.60 - 1.60 g/dL 12/02/2023 14:11 [facility] Monoclonal Prakash % 13.7(H) None Seen % 12/02/2023 14:11 [facility] Monoclonal Prakash g/dL 0.9(H) None Seen g/dL 12/02/2023 14:11 [facility] SPEP Comment Suspicious pattern, immunotyping to follow. 12/02/2023 14:11 [facility] Comment:See scanned/suppleme ntary report. 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 Recommend clinical correlation. Reviewed by: Sulaiman Liz MD 12/02/2023 1329 12/02/2023 14:11 EST [facility] Total Protein 6.9 6.3 - 8.2 g/dL 12/02/2023 14:11 EST [facility] Blood VENOUS BLOOD / Unknown 11/29/2023 11:25 EST 11/29/2023 17:11 EST Provider Outr Resulting Lab CHEMISTRY & BLOOD GAS ORDERABLES Performing Organization Address [facility] Co de Phone Number [facility] [address] [place] [address] * PROTEIN, TOTAL (11/29/2023 11:25 EST) Blood VENOUS BLOOD / Unknown 11/29/2023 11:25 EST 11/29/2023 17:11 EST Provider Outr Resulting Lab CHEMISTRY & BLOOD GAS ORDERABLES Performing Organization Address [facility] Co de Phone Number [facility] [address] [place] [address] * HOMOCYSTEINE (11/29/2023 11:25 EST) Homocysteine 13.3 5.0 - 13.9 umol/L 12/02/2023 14:25 EST [facility] Blood VENOUS BLOOD / Unknown 11/29/2023 11:25 EST 11/29/2023 17:21 EST Narrative [facility] - 12/02/2023 14:25 EST Reference range may not apply to non-fasting samples. ??It is not recommended that EDTA plasma and serum from the same patient be used interchangeably. ??Serum concentrations have been observed to be up to 10% higher than EDTA plasma. Reference range may not apply to serum results. Provider Outr Resulting Lab CHEMISTRY & BLOOD GAS ORDERABLES Performing Organization Address [facility] Co de Phone Number [facility] [address] [place] [address] * (ABNORMAL) HAPTOGLOBIN (11/29/2023 11:25 EST) Haptoglobin 216(H) 32 - 197 mg/dL 12/02/2023 10:41 EST [facility] Blood VENOUS BLOOD / Unknown 11/29/2023 11:25 EST 11/29/2023 17:11 EST Provider Outr Resulting Lab CHEMISTRY & BLOOD GAS ORDERABLES Performing Organization Address [facility] Co de Phone Number [facility] [address] [place] [address] * ANTI NUCLEAR AB (IAN), IFA (11/29/2023 11:25 EST) IAN Interpretation Negative Negative 2023 15:19 EST [facility] Comment:No titer performed, IAN Screen is negative. Blood VENOUS BLOOD / Unknown 11/29/2023 11:25 EST 11/29/2023 17:11 EST Narrative [facility] - 12/02/2023 15:19 EST Results were obtained with the INOVA NOVA Lite HEp-2 IAN Kit by indirect immunofluorescence. Provider Outr Resulting Lab IMMUNOLOGY A ND SEROLOGY ORDERABLES Performing Organization Address [facility] Co de Phone Number [facility] [address] [place] [phone] documented in this encounter Visit Diagnoses Not on filedocumented in this encounter Care Teams Metal Off Bearer Relationship Specialty Start Date End Date Unknown, Provider, PCP - General 05/22/20 documented as of this encounter
--- OUTSIDE RECORDS SUMMARY | 2024-06-02 14:32 | XMS_ITS | Encounter Summary ---
Author Organization [facility] Address [address] [place] [address] Care Team Providers Care Production Grip Name Role Phone Unknown, Provider Primary Care Provider [phone] Reason for Visit * Reason Onset Date Comments Results 05/25/2020 Encounter Details Date Type Department Care Team (Late st Contact Info) Description 05/25/2020 Telephone [facility] [address] [place] [address] Clementina Narayanan, MRI ASSISTANT [address] [place] [phone] Results Social History Tobacco Use Types Packs/Day Years Used Date Smoking Tobacco: Former Cigarettes Q uit: 05/22/1995 Smokeless Tobacco: Never Interpersonal Safety Answer Date Record ed Physically Hurt Never 05/22/2020 Verbally Threaten Not on file 05/22/2020 Sex and Gender Information Value Date Recorded Sex Assigned at Not on file Gender Identity Not on file Sexual Orientation Not on file documented as of this encounter Miscellaneous Notes * Telephone Encounter - Val Adan RN - 05/25/2020 0857 EDT Patient notified of lab results on 05/25/20. Patient denies any additional questions at this time. VAL ADAN RN 05/25/20 8:57 * Telephone Encounter - Clementina Narayanan - 05/25/2020 0841 EDT Please call patient and let him know COVID19 neg. The coronavirus testing came back negative. There are many other common cold or flu like illness inthe community. If you have already received a diagnosis determined by your healthcare provider, please follow their advice. If your symptoms worsen please call your PCP office for evaluation. Let them know your testing was negative. We advise: ? Stay home, get rest, and hydrate. ? Take OTC pain relievers, fever reducers, decongestants or cough medicine to manage symptoms. (check with PCP first if you have chronic health conditions). ? Avoid close contact with people at home ( kissing, hugging, shaking hands) ? Cover your coughs and sneezes with a tissue. ? Clean your hands often either with soap and water for 20 seconds or an alcohol-based hand service technician that contains at least 60% alcohol. ? Clean high-touch surfaces daily (counter, tables, doorknobs, toilet, computer, etc) Please contact your employer about returning to work. Generally we recommend you stay home until your symptoms have improved AND you are fever-free for 72 hours OR at least 7 days have passed since your symptoms first appeared. documented in this encounter Plan of Treatment Not on file documented as of this encounter Visit Diagnoses Not on filedocumented in this encounter Care Teams Production Grip Relationship Specialty Start Date End Date Unknown, Provider, PCP - General 05/22/20 documented as of this encounter
--- OUTSIDE RECORDS SUMMARY | 2024-06-02 14:32 | XMS_ITS | Encounter Summary ---
Author Organization [facility] Address [address] [place] [address] Care Team Providers Care Stock Clerk Name Role Phone Unknown, Provider Primary Care Provider Encounter Details Date Type Department Care Team (Late st Contact Info) Description 06/07/2022 Lab Requisition [facility] Pathology & Laboratory Medicine - [facility] [address] [place] [address] Outr Resulting Lab, Provider Social History Tobacco [...] Procedure Name Priority Date/Time Associated Diagnosis Comments PSA TOTAL, DIAGNOSTIC Routine 06/07/2022 11:25 EDT documented in this encounter Results * PSA TOTAL, DIAGNOSTIC (06/07/2022 11:25 EDT) PSA 1.0 <=6.5 ng/mL 06/08/2022 15:05 EDT [facility] Blood VENOUS BLOOD / Unknown 06/07/2022 11:25 EDT 06/07/2022 21:25 EDT Narrative [facility] - 06/08/2022 15:05 EDT NOTE: Serum PSA concentration should not be interpreted as absolute evidence for the presence or absence of malignant disease. Assayed on Siemens ADVIA Centaur XPT using chemiluminescent technology.??Values obtained by using different assay methods cannot be used interchangeably. Provider Outr Resulting Lab CHEMISTRY & BLOOD GAS ORDERABLES [facility] [address] [place] [address] documented in this encounter Visit Diagnoses Not on filedocumented in this encounter Care Teams Stock Clerk Relationship Specialty Start Date End Date Unknown, Provider, PCP - General 05/22/20 documented as of this encounter
--- OUTSIDE RECORDS SUMMARY | 2024-06-02 14:32 | XMS_ITS | Encounter Summary ---
Author Organization [facility] Address [address] [place] [address] Care Team Providers Care Log Peeler Name Role Phone Unknown, Provider Primary Care Provider Encounter Details Date Type Department Care Team (Late st Contact Info) Description 05/23/2020 Lab Requisition [facility] - [facility] [address] [place] [address] Outr Resulting Lab, Provider Social History Tobacco [...] Procedure Name Priority Date/Time Associated Diagnosis Comments DO NOT ORDER STANDALONE - BROAD COVID TEST Today 05/23/2020 0:00 EDT COVID-19 TESTING Routine 05/23/2020 0:00 EDT documented in this encounter Results * DO NOT ORDER STANDALONE - BROAD COVID TEST (05/23/2020 0:00 EDT) COVID-19 rt-PCR Result NEGATIVE Negative 05/24/2020 19:45 EDT [facility] Comment: 2019-novel Coronavirus (2019-nCoV) not detected by the qRT-PCR assay. Consider testing for other respiratory viruses or re-collecting for 2019-nCoV testing. Note: Optimum timing for peak viral levels during infections caused by 2019-nCoV have not been determined. Collection of multiple specimens from the same patient may be necessary to detect the virus. Limitations Positive results are indicative of active infection with SARS-CoV-2 but do not rule out bacterial infection or co-infection with other viruses. The agent detected may not be the definite cause of disease. In addition, detection of viral RNA may not indicate the presence of infectious virus or that SARS-CoV-2 is the causative agent for clinical symptoms. Negative results do not preclude SARS-CoV-2 infection and should not be used as the sole basis for patient management decisions. Negative results must be combined with clinical observations, patient history, and epidemiological information. False negative results may also occur if amplification inhibitors are present in the specimen or if inadequate numbers of organisms are present in the specimen. Optimum specimen types and timing for peak viral levels during infections caused by SARS-CoV-2 have not been fully determined. Collection of multiple specimens (types and time points) from the same patient may be necessary to detect the virus. The test was validated for use with upper respiratory specimens obtained via nasopharyngeal or oropharyngeal swabs in VTM, UTM, M4, M5, M6, saline, and MTM media. The performance of this test has not been established for other specimens. Specimens collected using other FDA recommended Specimen Collection Materials listed in the FDA COVID-19 [employer] communication (December 31, 2019) are processed with the caveat that they were not all validated for use with this test and the result must be interpreted in this context. Furthermore, a false negative results may occur if a specimen is improperly collected, transported or handled. If the virus mutates in the RT-PCR target region, SARS-CoV-2 may not be detected or may be detected less predictably. Inhibitors or other types of interference may produce a false negative result. An interference study evaluating the effect of common cold medications was not performed. This test is not FDA-cleared but its performance characteristics were established by our CLIA-certified, CAP-accredited, high complexity laboratory in accordance with CLIA regulations, [employer] (CAP) guidelines (Dec 24, 2019), and FDA guidance (Dec 05, 2019). This test is only for use under the Food and Drug Administration's Emergency Use Authorization. Swab ENTIRE NASOPHARYNX / Unknown 05/23/2020 05/23/2020 20:44 EDT Provider Outr Resulting Lab MICROBIOLOGY - GENERAL ORDERABLES [facility] [place], [place] * COVID-19 TESTING (05/23/2020 0:00 EDT) Pathologist [facility] COVID-19 rt-PCR Result NEGATIVE Negative 05/24/2020 20:22 EDT [facility] Comment: 2019-novel Coronavirus (2019-nCoV) not detected by the qRT-PCR assay. Consider testing for other respiratory viruses or re-collecting for 2019-nCoV testing. Note: Optimum timing for peak viral levels during infections caused by 2019-nCoV have not been determined. Collection of multiple specimens from the same patient may be necessary to detect the virus. Limitations Positive results are indicative of active infection with SARS-CoV-2 but do not rule out bacterial infection or co-infection with other viruses. The agent detected may not be the definite cause of disease. In addition, detection of viral RNA may not indicate the presence of infectious virus or that SARS-CoV-2 is the causative agent for clinical symptoms. Negative results do not preclude SARS-CoV-2 infection and should not be used as the sole basis for patient management decisions. Negative results must be combined with clinical observations, patient history, and epidemiological information. False negative results may also occur if amplification inhibitors are present in the specimen or if inadequate numbers of organisms are present in the specimen. Optimum specimen types and timing for peak viral levels during infections caused by SARS-CoV-2 have not been fully determined. Collection of multiple specimens (types and time points) from the same patient may be necessary to detect the virus. The test was validated for use with upper respiratory specimens obtained via nasopharyngeal or oropharyngeal swabs in VTM, UTM, M4, M5, M6, saline, and MTM media. The performance of this test has not been established for other specimens. Specimens collected using other FDA recommended Specimen Collection Materials listed in the FDA COVID-19 [employer] communication (December 31, 2019) are processed with the caveat that they were not all validated for use with this test and the result must be interpreted in this context. Furthermore, a false negative results may occur if a specimen is improperly collected, transported or handled. If the virus mutates in the RT-PCR target region, SARS-CoV-2 may not be detected or may be detected less predictably. Inhibitors or other types of interference may produce a false negative result. An interference study evaluating the effect of common cold medications was not performed. This test is not FDA-cleared but its performance characteristics were established by our CLIA-certified, CAP-accredited, high complexity laboratory in accordance with CLIA regulations, College of [employer] (CAP) guidelines (Dec 24, 2019), and FDA guidance (Dec 05, 2019). This test is only for use under the Food and Drug Administration's Emergency Use Authorization. Performing Lab [facility] 05/24/2020 20:22 EDT [facility] Swab 05/23/2020 05/23/2020 20: 44 EDT Provider Outr Resulting Lab MICROBIOLOGY - GENERAL ORDERABLES [facility] [address] [place] [address] [facility] [place], [place] documented in this encounter Visit Diagnoses Not on filedocumented in this encounter Care Teams Log Peeler Relationship Specialty Start Date End Date Unknown, Provider, PCP - General 05/22/20 documented as of this encounter
--- OUTSIDE RECORDS SUMMARY | 2024-06-02 14:33 | XMS_ITS | Encounter Summary ---
Author Organization [facility] Address [address] [place] [address] Care Team Providers Care Follow Up Rep Name Role Phone Unknown, Provider Primary Care Provider Reason for Visit * Reason Comments Sore Throat Encounter Details Date Type Department Care Team (Late st Contact Info) Description 05/22/2020 13:45 EDT Office Visit [facility] [address] [place] [address] Clementina Narayanan, CREDIT COLLECTIONS ANALYST [address] [place] [id number] Acute pharyngitis, unspecified etiology (Primary Dx) Social History Tobacco Use Types Packs/Day Years Used Date Smoking Tobacco: Former Cigarettes Q uit: 05/22/1995 Smokeless Tobacco: Never Interpersonal Safety Answer Date Record ed Physically Hurt Never 05/22/2020 Verbally Threaten Not on file 05/22/2020 Sex and Gender Information Value Date Recorded Sex Assigned at Not on file Gender Identity Not on file Sexual Orientation Not on file documented as of this encounter Last Filed Vital Signs Vital Sign Reading Time Taken Comments Blood Pressure - - Pulse 60 05/22/2020 1415 EDT Temperature 36.7 ??C (98 ??F) 05/22/2020 1415 EDT Respiratory Rate - - Oxygen Saturation 98% 05/22/2020 1415 EDT Inhaled Oxygen Concentration - - Weight - - Height - - Body Mass Index - - documented in this encounter Patient Instructions * Patient Instructions* Clementina Narayanan - 05/22/2020 13:45 EDT You were seen at the [facility] for sore throat. Rapid strep test is negative, antibiotics are not indicated. Sore throat symptoms can be caused by bacteria (like strep), viruses and post nasal drip. Non-bacterial causes of sore throat (viruses) tend to resolve in 7- 10 days. If you are experiencing post nasal drip, you may try an icnw-qsk-mzkklcw nasal spray like Flonase per packaging instructions. Other symptomatic care includes; ie. warm salt water gargles, mtsr-nfx-gomqlhd pain management medications like ibuprofen or Tylenol per dosage guidelines, ilde-vwm-lavjiry throat lozenges/sprays like clorasept, hot tea or warm water with honey. You have been tested for COVID-19 (Coronavirus) but are safe to care for yourself at home at this time. You must wear a mask while you are being transported home and do NOT take public transportation. Please review the instructions below regarding home management and quarantine for you and householdmembers. The link below is for additional information on these topics from the CDC. https://www.cdc.gov/coronavirus/2019-ncov/downloads/yqsm-cqtc-6192-bBbH-hiua-ggy et.pdf You will be contacted whether your test is positive or negative. If your test is positive, you will receive further direction from your Primary Care Provider and/orthe [place] Department of Health. Likely you will be able to continue to care for yourself at home with rest and good hydration. You should go to the Emergency Department with significant worsening of difficulty breathing. Call your PCP to discuss any other questions or concerns. Please CALL AHEAD to any facility you are planning to seek care at prior to being evaluated if you are found to have COVID-19 or have been tested and results are still pending. HOME CARE FOR COVID19 OR SUSPECTED COVID19 WHEN YOU HAVE COVID19 or symptoms consistent with COVID19, it is very important that you are QUARANTINED AT HOME to avoid spreading the disease. QUARANTINE MUST CONTINUE UNTIL: ??? You have been fever free for 72 hours (3 full days) without use of fever- reducing medications AND ??? Your cough, shortness of breath and other symptoms have significantly improved AND it has been a minimum of 10 days since your symptoms began. MOST PEOPLE WILL NEED TO BE HOME MUCH LONGER THAN 10DAYS. If you have been told by a health care provider to quarantine, follow these instructions: ??? STAY HOME. You should be in full quarantine from contact with anyone outside of your home. ??? DO NOT GO TO WORK, SCHOOL, OR ANY PUBLIC PLACES. Do not go to nguyen, stores, or meeting places to burr picker or drop off items. ??? DO NOT USE PUBLIC TRANSPORTATION, RIDE-SHARING, TAXIS or other shared transportation. ??? ASK FOR HELP WITH GETTING SUPPLIES. If you do not have friends or relatives who are able to help with delivering necessary supplies to you, ask your health care provider to connect you with community support resources. o ALL supplies must be dropped off using 'NO CONTACT' delivery. o Stay inside while supplies are dropped off on your porch or at your door. o Do not go outside to collect items until the delivery manager has left the area. ??? SEPARATE YOURSELF FROM HOUSEHOLD MEMBERS MUCH POSSIBLE: o Sleep in a separate room if possible. o Use a separate bathroom if available. o Avoid sharing household items such as cups, dishes, utensils, bedding, towels, lotions or other body products. o If you must be in the same room as a household member for any reason or any amount of time, wear a face mask and try to maintain at least 6 feet of distance between you. o Always use a tissue or other disposable paper product to cover coughs and sneezes. Wash hands promptly afterwards. o CLEAN YOUR HANDS FREQUENTLY. Use soap and water for a minimum of 20 seconds or an alcohol based fruit thinner machine operator containing at least 60% alcohol. o CLEAN HIGH TOUCH SURFACES in your house at least once daily. Use bleach wipes or bleach solution to clean counters, tables, door knobs, cabinet handles, refrigerator handle, kitchen and bathroom faucets, toilet, light switches, computer, etc. HOME TREATMENT RECOMMENDATION FOR CONFIRMED OR SUSPECTED COVID19 ??? STAY HYDRATED. Drink water, Gatorade/Pedialyte/ReCharge, herbal tea with honey. A good homemadeelectrolyte replacement beverage can be made by mixing 16 oz of water with about ?? cup of lemon/orange juice, about ?? tsp of salt, and a large spoonful of honey. Mix the honey with a small amount of boiled water first if needed to help it dissolve. ??? PAY ATTENTION TO YOUR BREATHING. If you are feeling short of breath at rest, if you are not able to easily speak in full sentences, if you are feeling more short of breath with normal activities such as walking up and down stairs or going to your mailbox, seek medical attention. o SHORTNESS OF BREATH OFTEN IMPROVES WHEN YOU SPEND TIME LYING ON YOUR STOMACH. Try sleeping on your stomach, and spend time during the day lying in this position. o IF YOU HAVE PREVIOUSLY BEEN PRESCRIBED AN ALBUTEROL INHALER, please use this with a spacer (if you have one). Use 2 puffs every 4-6 hours. If you have been previously prescribed any other inhalers such as Flovent or Advair, use those as prescribed. Consult your PCP with any questions. ??? MONITOR YOUR VITAL SIGNS as much as you are able. o Check your temperature regularly, and treat any fever over 101 with Tylenol/acetaminophen. If your fever does not respond to treatment, seek medical attention. - DO NOT USE NSAIDS (Advil, Motrin, Aleve, ibuprofen, naproxen, or aspirin). If you take these regularly, consult your PCP. - IF you have previously been told not to use Tylenol/acetaminophen, consult your PCP. o If you have a pulse-oximetry device at home, use this to monitor your oxygen levels. If you are consistently at 94% or lower, seek medical attention. o You can count your own pulse at home - if you are consistently having a heart rate over 100 at rest, seek medical attention. PAY ATTENTION TO HOW YOU FEEL. If you feel that ???something just isn't right?? , follow your instincts and seek medical attention. documented in this encounter Progress Notes * Pratik Crowe - 05/22/2020 1345 EDT Reason patient is referred to [facility]: Sore Throat CC: Sore Throat HPI: Roof of mouth sore since 05/20. Denies cough or fever. 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 He is here with his who is being seen for acute pharyngitis as well. Patient also notes post nasal drip and seasonal allergies. He is not currently taking any allergy medication. PSH Patient had a tonsillectomy as a teenager. PMH History of acid reflux take omeprazole and TUMS, this sore throat does not feel the same as thesore throat experienced with acid reflux He denies fever, chills, nausea/vomiting/diarrhea, rash, cough, chest pain, ear symptoms, sinus pain, ear symptoms, shortness of breath, wheeze, dysphagia, difficulty managing oral secretions. He is tolerating p.o's per his normal. 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 No known sick contacts. No recent travel. Social History Tobacco Use Smoking Status Former Smoker ??? Types: Cigarettes ??? Quit date: 05/22/1995 ??? Years since quittin.0 Smokeless Tobacco Never Used Reason for referral to [facility]: sore throat Where patient was examined: [facility] tent Screened from: [facility] to [facility] I have reviewed current problem list, current medications and allergies. ROS: Review of Systems Constitutional: Negative for chills, fever and malaise/fatigue. HENT: Positive for congestion and sore throat. Negative for ear pain. Eyes: Negative for pain, discharge and redness. Respiratory: Negative for cough. Cardiovascular: Negative for chest pain. Gastrointestinal: Negative for diarrhea, nausea and vomiting. See HPI for details Objective: Examination: Vitals: Pulse 60 Temp 36.7 ??C (98 ??F) (Oral) SpO2 98% Physical Exam Vitals signs and nursing note reviewed. Constitutional: General: He is not in acute distress. Appearance: He is not ill-appearing or toxic-appearing. HENT: Head: Jaw: No trismus. Nose: Rhinorrhea present. Mouth/Throat: Mouth: Mucous membranes are moist. Pharynx: Oropharynx is clear. Uvula midline. Posterior oropharyngeal erythema (mildly injected) present. No pharyngeal swelling or uvula swelling. Comments: Tonsils absent; cobblestoning posterior pharynx Eyes: Conjunctiva/sclera: Conjunctivae normal. Pupils: Pupils are equal, round, and reactive to light. Neck: Musculoskeletal: Normal range of motion and neck supple. No neck rigidity. Cardiovascular: Rate and Rhythm: Normal rate. Pulmonary: Effort: Pulmonary effort is normal. Lymphadenopathy: Cervical: No cervical adenopathy. Neurological: Mental Status: He is alert. Psychiatric: Behavior: Behavior is cooperative. Assessment & Plan: Reji was seen today for sore throat. Diagnoses and all orders for this visit: Acute pharyngitis, unspecified etiology - POCT RAPID STREP SCREEN - COVID-19 TESTING Results for orders placed or performed in visit on 05/22/20 POCT RAPID STREP SCREEN Result Value Ref Range Rapid Strep Test, POC Negative Negative Background Clear? Yes Control Line Present Yes Rgt A + Rgt B= Yellow: Culture Sent to Lab? No This is a 70 y.o. yr old male with sore throat. RST neg. COVID19 testing ordered. DDx viral illness, allergies, other. Patient is generally well appearing, afebrile, non toxic, well hydrated, stable on exam. AGE (3-14yo = 1, 15-44yo = 0, >/=45yo = -1) EXUDATIVE TONSILS (yes = 1, no = 0) PRESENCE OF LAD (yes = 1, no = 0) ABSENCE OF COUGH (yes = 1, no = 0) FEVER > 38c (yes = 1, no = 0) SCORE = 0 Centor score 0, no further testing indicated. I printed material and reviewed home management and follow up in detail with patient, see patient instructions below. All questions are answered. Patient is advised to follow up for urgent reassessment in the emergency department for any new/worsening signs and symptoms, otherwise, follow up with PCP for symptoms that persist past current course of treatment or expected resolution as discussed. Patient verbalizes understanding and agreement with this plan of care. documented in this encounter Plan of Treatment Not on file documented as of this encounter Procedures Procedure Name Priority Date/Time Associated Diagnosis Comments COVID-19 TESTING Routine 05/23/2020 11:4 4 EDT Acute pharyngitis, unspecified etiology POCT RAPID STREP SCREEN Routine 05/22/2020 14:26 EDT Acute pharyngitis, unspecified etiology documented in this encounter Results * COVID-19 TESTING (05/23/2020 11:44 EDT) Performing Lab [facility] 05/24/2020 21:[address] [facility] Comment: Please indicate the Triage Tier3 Test performed [place] [address] COVID-19 rt-PCR Result Not Detected Negative 05/24/2020 21:[address] [facility] Comment: 2019-novel Coronavirus (2019-nCoV) not detected by [...] in accordance with CLIA regulations, [employer] (CAP) guidelines (Dec 24, 2019), and FDA guidance (Dec 05, 2019). This test is only for use under the Food and Drug Administration's Emergency Use Authorization. Swab ENTIRE NASOPHARYNX / Unknown 05/23/2020 11:44 EDT 05/23/2020 11:44 EDT Clementina Narayanan NP MICROBIOLOGY - GENER AL ORDERABLES [facility] [address] [place] [address] * POCT RAPID STREP SCREEN (05/22/2020 14:26 EDT) Rapid Strep Test, POC Negative Negative [facility] POINT OF CARE Background Clear? Yes [facility] Control Line Present Yes [facility]INT [facility] Rgt A + Rgt B= Yellow: [facility]INT [facility] Culture Sent to Lab? No [facility] Swab ENTIRE PHARYNX / Unknown 05/22/2020 14:26 EDT Clementina Narayanan NP POINT OF CARE TEST O RDERABLES [facility] documented in this encounter Visit Diagnoses Diagnosis Acute pharyngitis, unspecified etiology- Primary documented in this encounter Historical Medications * This list may reflect changes made after this encounter. Medication Sig Dispensed Refills Start Date End Date calcium carbonate (TUMS) 200 mg calcium (500 mg) tablet,chewable Take 1 Tab by mouth 4 times daily as needed. Omeprazole 20 mg tablet,delayed release (DR/EC) Take by mouth. hydroCHLOROthiazide (HYDRODIURIL) 12.5 mg tablet Take 12.5 mg by mouth daily. rosuvastatin (CRESTOR) 20 mg tablet Take 20 mg by mouth daily. added in this encounter Care Teams Follow Up Rep Relationship Specialty Start Date End Date Unknown, Provider, PCP - General 05/22/20 documented as of this encounter
[2024-06-02 14:41] LABS: Troponin I < 50 ng/L (< or =60)
== END 2024-06-02 15:10 | disposition home or self-care (01) ==
LOC: ER 14:26
PROVIDERS: Emergency Provider Emergency Medicine; PCP Physician Assistant
DX: R07.9 Chest pain, unspecified (principal); I10 Essential (primary) hypertension; E78.5 Hyperlipidemia, unspecified; E11.9 Type 2 diabetes mellitus without complications; R94.31 Abnormal electrocardiogram [ECG] [EKG]; Z87.891 Personal history of nicotine dependence
CPT/HCPCS: 36415; 71275; 80053; 93005; 99285; 83735; 84443; 84484; 85025; 85610; 85730; 93010; 99284; J3490

== ENCOUNTER 2024-07-24 00:26 | Outpatient (CLI) | payer MEDICARE, SELFPAY ==
--- OUTSIDE RECORDS SUMMARY | 2024-07-24 00:28 | XMS_ITS | Encounter Summary ---
Author Organization [facility] Address [address] [place] [address] Care Team Providers Care Rig Operator Name Role Phone Unknown, Provider Primary Care Provider [phone] Reason for Visit * Reason Comments Sore Throat Encounter Details Date Type Department Care Team (Late st Contact Info) Description 05/22/2020 13:45 EDT Office Visit [facility] [address] [place] [address] Clementina Narayanan, HERBARIUM CURATOR [address] [place] [phone] Acute pharyngitis, unspecified etiology (Primary Dx) [...] 13:45 EDT You were seen at the [facility] for sore throat. Rapid strep test is negative, antibiotics are not indicated. Sore throat symptoms can be caused by bacteria (like strep), viruses and post nasal drip. Non-bacterial causes of sore throat (viruses) tend to resolve in 7- 10 days. If you are experiencing post nasal drip, you may try an zhol-evh-levkmgj nasal spray like Flonase per packaging instructions. Other symptomatic care includes; ie. warm salt water gargles, alth-mbi-benljql pain management medications like ibuprofen or Tylenol per dosage guidelines, pjmv-hwt-khxwnot throat lozenges/sprays like clorasept, hot tea or [...] information on these topics from the CDC. https://www.cdc.gov/coronavirus/2019-ncov/downloads/rvzi-ezbn-3259-yPiD-eabz-rcd et.pdf You will be contacted whether your test is positive or negative. If your test is positive, you will receive further direction from your Primary Care Provider and/orthe [place] Department of Health. Likely you will be [...] to nguyen, stores, or meeting places to pickling grader or drop off items. ??? DO NOT [...] outside to collect items until the delivery specialist has left the area. ??? SEPARATE YOURSELF [...] of 20 seconds or an alcohol based accounting manager containing at least 60% alcohol. 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 No known sick contacts. No recent travel. Social History Tobacco Use Smoking Status Former Smoker ??? Types: Cigarettes ??? Quit date: 05/22/1995 ??? Years since quittin.0 Smokeless Tobacco Never Used Reason for referral to [facility]: sore throat Where patient was examined: [facility] tent Screened from: [facility] to [facility] I have reviewed [...] COVID-19 TESTING (05/23/2020 11:44 EDT) Performing Lab [facility] 05/24/2020 21:17 EDT [facility] Comment: Please indicate the Triage Tier3 Test [place] [address] COVID-19 rt-PCR Result Not Detected Negative 05/24/2020 21:17 EDT [facility] Comment: 2019-novel Coronavirus (2019-nCoV) not detected [...] in accordance with CLIA regulations, College of [place] [employer] (CAP) guidelines (Dec 24, 2019), and FDA guidance (Dec 05, 2019). This test is only for use under the Food and Drug Administration's Emergency Use Authorization. Swab ENTIRE NASOPHARYNX / Unknown 05/23/2020 11:44 EDT 05/23/2020 11:44 EDT Clementina Narayanan NP MICROBIOLOGY - GENER AL ORDERABLES [facility] [address] [place] [address] * POCT RAPID STREP SCREEN (05/22/2020 14:26 [...] daily. added in this encounter Care Teams Rig Operator Relationship Specialty Start Date End Date Unknown, Provider, PCP - General 05/22/20 documented as of this encounter
--- OUTSIDE RECORDS SUMMARY | 2024-07-24 00:28 | XMS_ITS | Encounter Summary ---
Author Organization [facility] Address [address] [place] [address] Care Team Providers Care Bobbin Inspector Name Role Phone Unknown, Provider Primary Care Provider [phone] Reason for Visit * Reason Onset Date Comments Results 05/25/2020 Encounter Details Date Type Department Care Team (Late st Contact Info) Description 05/25/2020 Telephone [facility] - [facility] ExpressCare [facility] [address] [place] [address] Clementina Narayanan, JACQUARD CARD LACER [address] [place] [phone] Results Social History Tobacco Use Types Packs/Day [...] for 20 seconds or an alcohol-based hand granite cutter that contains at least 60% alcohol. ? [...] on filedocumented in this encounter Care Teams Bobbin Inspector Relationship Specialty Start Date End Date Unknown, Provider, PCP - General 05/22/20 documented as of this encounter
--- OUTSIDE RECORDS SUMMARY | 2024-07-24 00:28 | XMS_ITS | Clinical Summary ---
Author Organization [facility] Address [address] [place] [address] Care Team Providers Care Nutritionalist Name Role Phone Unknown, Provider Primary Care Provider [phone] Allergies No known active allergies Medications Medication [...] COVID-19 Vaccine (2022-24 season) 2023 Care Teams Nutritionalist Relationship Specialty Start Date End Date Unknown, Provider, PCP - General 05/22/20
--- OUTSIDE RECORDS SUMMARY | 2024-07-24 00:28 | XMS_ITS | Referral Summary ---
Author Organization [facility] Address [address] [place] [address] Care Team Providers Care Auto Clocks Repairer Name Role Phone Unknown, Provider Primary Care Provider [phone] Allergies No known active allergies Medications Medication [...] of Treatment Not on file Care Teams Auto Clocks Repairer Relationship Specialty Start Date End Date Unknown, Provider, PCP - General 05/22/20
--- OUTSIDE RECORDS SUMMARY | 2024-07-24 00:28 | XMS_ITS | Encounter Summary ---
Author Organization [facility] Address [address] [place] [address] Care Team Providers Care Central Lab Technician Name Role Phone Unknown, Provider Primary Care Provider Encounter Details Date Type Department Care Team (Late st Contact Info) Description 11/29/2023 Lab Requisition [facility] Pathology & Laboratory Medicine - [facility] [address] [place] [address] Outr Resulting Lab, Provider Social History Tobacco [...] (ABNORMAL) SPEP WITH IMMUNOTYPING PERFORMABLE (11/29/2023 11:25 [facility]) Albumin % 52.8(L) 55.8 - 66.1 % 12/02/2023 14:11 [facility] Albumin g/dL 3.6 3.6 - 5.2 g/dL 12/02/2023 14:11 [facility] Alpha-1 % 3.9 2.9 - 4.9 % 12/02/2023 14:11 [facility] Alpha-1 g/dL 0.30 0.15 - 0.40 g/dL 12/02/2023 14:11 [facility] Alpha-2 % 12.4(H) 7.1 - 11.8 % 12/02/2023 14:11 [facility] Alpha-2 g/dL 0.90 0.50 - 1.00 g/dL 12/02/2023 14:11 [facility] Beta % 9.0 8.4 - 13.1 % 12/02/2023 14:11 [facility] Beta g/dL 0.60 0.60 - 1.20 g/dL 12/02/2023 14:11 [facility] Gamma % 21.9(H) 11.1 - 18.8 % 12/02/2023 14:11 [facility] Gamma g/dL 1.50 0.60 - 1.60 g/dL 12/02/2023 14:11 [facility] Monoclonal Prakash % 13.7(H) None Seen % 12/02/2023 14:11 [facility] Monoclonal Prakash g/dL 0.9(H) None Seen g/dL 12/02/2023 14:11 [facility] SPEP Comment Suspicious pattern, immunotyping to follow. 12/02/2023 14:11 [facility] Comment:See scanned/suppleme ntary report. 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 Recommend clinical correlation. Reviewed by: Sulaiman Liz MD 12/02/2023 1329 12/02/2023 14:11 EST [facility] Total Protein 6.9 6.3 - 8.2 g/dL 12/02/2023 14:11 EST [facility] Blood VENOUS BLOOD / Unknown 11/29/2023 11:25 EST 11/29/2023 17:11 EST Provider Outr Resulting Lab CHEMISTRY & BLOOD GAS ORDERABLES Performing Organization Address [facility] Co de Phone Number [facility] [address] [place] [address] * PROTEIN, TOTAL (11/29/2023 11:25 EST) Blood VENOUS BLOOD / Unknown 11/29/2023 11:25 EST 11/29/2023 17:11 EST Provider Outr Resulting Lab CHEMISTRY & BLOOD GAS ORDERABLES Performing Organization Address [facility] Co de Phone Number [facility] [address] [place] [address] * HOMOCYSTEINE (11/29/2023 11:25 EST) Homocysteine 13.3 5.0 - 13.9 umol/L 12/02/2023 14:25 EST [facility] Blood VENOUS BLOOD / Unknown 11/29/2023 11:25 EST 11/29/2023 17:21 EST Narrative [facility] - 12/02/2023 14:25 EST [...] & BLOOD GAS ORDERABLES Performing Organization Address [facility] Co de Phone Number [facility] [address] [place] [address] * (ABNORMAL) HAPTOGLOBIN (11/29/2023 11:25 EST) Haptoglobin 216(H) 32 - 197 mg/dL 12/02/2023 10:41 EST [facility] Blood VENOUS BLOOD / Unknown 11/29/2023 11:25 EST 11/29/2023 17:11 EST Provider Outr Resulting Lab CHEMISTRY & BLOOD GAS ORDERABLES Performing Organization Address City/[facility] Co de Phone Number [facility] [address] [place] [address] * ANTI NUCLEAR AB (IAN), IFA (11/29/2023 11:25 EST) IAN Interpretation Negative Negative 2023 15:19 EST [facility] Comment:No titer performed, IAN Screen is negative. Blood VENOUS BLOOD / Unknown 11/29/2023 11:25 EST 11/29/2023 17:11 EST Narrative [facility] - 12/02/2023 15:19 EST Results were obtained with the INOVA NOVA Lite HEp-2 IAN Kit by indirect immunofluorescence. Provider Outr Resulting Lab IMMUNOLOGY A ND SEROLOGY ORDERABLES Performing Organization Address [facility] Co de Phone Number [facility] [address] [place] [phone] documented in this encounter Visit Diagnoses Not on filedocumented in this encounter Care Teams Central Lab Technician Relationship Specialty Start Date End Date Unknown, Provider, PCP - General 05/22/20 documented as of this encounter
--- OUTSIDE RECORDS SUMMARY | 2024-07-24 00:28 | XMS_ITS | Encounter Summary ---
Author Organization [facility] Address [address] [place] [address] Care Team Providers Care Cement Gun Operator Name Role Phone Unknown, Provider Primary Care Provider [phone] Encounter Details Date Type Department Care Team (Late st Contact Info) Description 06/07/2022 Lab Requisition [facility] Pathology & Laboratory Medicine - [facility] [address] [place] [address] Outr Resulting Lab, Provider Social History Tobacco [...] PSA 1.0 <=6.5 ng/mL 06/08/2022 15:05 EDT [facility] Blood VENOUS BLOOD / Unknown 06/07/2022 11:25 EDT 06/07/2022 21:25 EDT Narrative [facility] - 06/08/2022 15:05 EDT NOTE: Serum PSA concentration should not be interpreted as absolute evidence for the presence or absence of malignant disease. Assayed on Siemens ADVIA Centaur XPT using chemiluminescent technology.??Values obtained by using different assay methods cannot be used interchangeably. Provider Outr Resulting Lab CHEMISTRY & BLOOD GAS ORDERABLES [facility] [address] [place] [address] documented in this encounter Visit Diagnoses Not on filedocumented in this encounter Care Teams Cement Gun Operator Relationship Specialty Start Date End Date Unknown, Provider, PCP - General 05/22/20 documented as of this encounter
--- OUTSIDE RECORDS SUMMARY | 2024-07-24 00:28 | XMS_ITS | Encounter Summary ---
Author Organization [facility] Address [address] [place] [address] Care Team Providers Care Bottoming Machine Operator Name Role Phone Unknown, Provider Primary Care Provider [phone] Encounter Details Date Type Department Care Team (Late st Contact Info) Description 05/23/[address] [facility] Pathology & Laboratory Medicine - [facility] [address] [place] [address] Outr Resulting Lab, Provider Social History Tobacco [...] rt-PCR Result NEGATIVE Negative 05/24/2020 19:45 EDT [facility] Comment: 2019-novel Coronavirus (2019-nCoV) [...] in accordance with CLIA regulations, [employer] of [place] Path[employer] (CAP) guidelines (Dec 24, 2019), and FDA guidance (Dec 05, 2019). This test is only for use under the Food and Drug Administration's Emergency Use Authorization. Swab ENTIRE NASOPHARYNX / Unknown 05/23/2020 05/23/2020 20:44 EDT Provider Outr Resulting Lab MICROBIOLOGY - GENERAL ORDERABLES [facility] [place], [place] * COVID-19 TESTING (05/23/2020 0:00 EDT) Pathologist [facility] [place] COVID-19 rt-PCR Result NEGATIVE Negative 05/24/2020 20:22 EDT [facility] Comment: 2019-novel Coronavirus (2019-nCoV) not detected [...] in accordance with CLIA regulations, [employer] of [place] Pathologists (CAP) guidelines (Dec 24, 2019), and FDA guidance (Dec 05, 2019). This test is only for use under the Food and Drug Administration's Emergency Use Authorization. Performing Lab [facility] 05/24/2020 20:22 EDT [facility] Swab 05/23/2020 05/23/2020 20: 44 EDT Provider Outr Resulting Lab MICROBIOLOGY - GENERAL ORDERABLES [facility] [address] [place] [address] [facility] [place], [place] documented in this encounter Visit Diagnoses Not on filedocumented in this encounter Care Teams Bottoming Machine Operator Relationship Specialty Start Date End Date Unknown, Provider, PCP - General 05/22/20 documented as of this encounter
--- NOTE | 2024-07-24 13:15 | DI.RAD_ITS ---
Exam(s) XR THORACIC SPINE COMPLETE EXAM: XR THORACIC SPINE COMPLETE CLINICAL HISTORY: T SPINE PAIN. TECHNIQUE: 2D digital imaging was performed of the thoracic spine. Four views were obtained. AP, s charlie's and lateral views were obtained. COMPARISON: CT CT CHEST PE CTA from 06/02/2024 FINDINGS: BONES: There is no fracture or destructive lesion. The vertebral bodies and posterior elements are un remarkable. Note is made of DISH throughout the thoracic spine. DISKS:Alignment is within normal limits. Interverebral disc spaces are maintained. SOFT TISSUE: Visualized lungs are clear. IMPRESSION: No acute fracture or subluxation in the thoracic spine. DATA REPOSITORY: RADIATION DOSE DELIVERED:
== END 2024-07-24 00:46 ==
LOC: DI 00:26
PROVIDERS: PCP Physician Assistant; Visit Provider Internal Medicine
DX: M54.6 Pain in thoracic spine (principal)
CPT/HCPCS: 36415; 80061; 84153; 72072; 83036; 85025

== ENCOUNTER 2024-07-24 02:20 | Outpatient (CLI) | payer MEDICARE, SELFPAY ==
--- OUTSIDE RECORDS SUMMARY | 2024-07-24 02:21 | XMS_ITS | Encounter Summary ---
Author Organization [facility] Address [address] [place] [address] Care Team Providers Care Lock Tender Name Role Phone Unknown, Provider Primary Care Provider Encounter Details Date Type Department Care Team (Late st Contact Info) Description 05/23/2020 Lab Requisition [facility] Pathology & Laboratory Medicine - [facility] [address] [place] [address] Outr Resulting Lab, Provider Social History Tobacco [...] rt-PCR Result NEGATIVE Negative 05/24/2020 19:45 EDT [facility] Comment: 2019-novel Coronavirus (2019-nCoV) [...] in accordance with CLIA regulations, College of [place] [employer]ologists (CAP) guidelines (Dec 24, 2019), and FDA guidance (Dec 05, 2019). This test is only for use under the Food and Drug Administration's Emergency Use Authorization. Swab ENTIRE NASOPHARYNX / Unknown 05/23/2020 05/23/2020 20:44 EDT Provider Outr Resulting Lab MICROBIOLOGY - GENERAL ORDERABLES [facility] [place], [place] * COVID-19 TESTING (05/23/2020 0:00 EDT) Pathologist [facility] COVID-19 rt-PCR Result NEGATIVE Negative 05/24/2020 20:22 EDT [facility] Comment: 2019-novel Coronavirus (2019-nCoV) not detected [...] in accordance with CLIA regulations, College of [employer]ologists (CAP) guidelines (Dec 24, 2019), and FDA guidance (Dec 05, 2019). This test is only for use under the Food and Drug Administration's Emergency Use Authorization. Performing Lab [facility] 05/24/2020 20:22 EDT [facility] Swab 05/23/2020 05/23/2020 20: 44 EDT Provider Outr Resulting Lab MICROBIOLOGY - GENERAL ORDERABLES [facility] [address] [place] [address] [facility] [place], [place] documented in this encounter Visit Diagnoses Not on filedocumented in this encounter Care Teams Lock Tender Relationship Specialty Start Date End Date Unknown, Provider, PCP - General 05/22/20 documented as of this encounter
--- OUTSIDE RECORDS SUMMARY | 2024-07-24 02:21 | XMS_ITS | Encounter Summary ---
Author Organization [facility] Address [address] [place] [address] Care Team Providers Care Airport Operations Officer Name Role Phone Unknown, Provider Primary Care Provider [phone] Reason for Visit * Reason Onset Date Comments Results 05/25/2020 Encounter Details Date Type Department Care Team (Late st Contact Info) Description 05/25/2020 Telephone [facility] - [facility] [address] [place] [address] Clementina Narayanan, BURRER HAND [address] [place] [phone] Results Social History Tobacco Use Types Packs/Day [...] for 20 seconds or an alcohol-based hand lunchroom operator that contains at least 60% alcohol. ? [...] on filedocumented in this encounter Care Teams Airport Operations Officer Relationship Specialty Start Date End Date Unknown, Provider, PCP - General 05/22/20 documented as of this encounter
--- OUTSIDE RECORDS SUMMARY | 2024-07-24 02:21 | XMS_ITS | Referral Summary ---
Author Organization [facility] Address [address] [place] [address] Care Team Providers Care Residential Door Installer Name Role Phone Unknown, Provider Primary Care Provider [phone] Allergies No known active allergies Medications Medication [...] of Treatment Not on file Care Teams Residential Door Installer Relationship Specialty Start Date End Date Unknown, Provider, PCP - General 05/22/20
--- OUTSIDE RECORDS SUMMARY | 2024-07-24 02:21 | XMS_ITS | Clinical Summary ---
Author Organization [facility] Address [address] [place] [address] Care Team Providers Care Endoscopy Nurse Name Role Phone Unknown, Provider Primary Care Provider [phone] Allergies No known active allergies Medications Medication [...] COVID-19 Vaccine (2022-24 season) 2023 Care Teams Endoscopy Nurse Relationship Specialty Start Date End Date Unknown, Provider, PCP - General 05/22/20
--- OUTSIDE RECORDS SUMMARY | 2024-07-24 02:21 | XMS_ITS | Encounter Summary ---
Author Organization [facility] Address [address] [place] [address] Care Team Providers Care Grades 9 Through 12 Teacher Name Role Phone Unknown, Provider Primary Care Provider [phone] Encounter Details Date Type Department Care Team (Late st Contact Info) Description 11/29/[address] [facility] Pathology & Laboratory Medicine - [facility] [address] [place] [address] Outr Resulting Lab, Provider Social History Tobacco [...] (ABNORMAL) SPEP WITH IMMUNOTYPING PERFORMABLE (11/29/2023 11:25 [facility]) Albumin % 52.8(L) 55.8 - 66.1 % 12/02/2023 14:11 [facility] Albumin g/dL 3.6 3.6 - 5.2 g/dL 12/02/2023 14:11 [facility] Alpha-1 % 3.9 2.9 - 4.9 % 12/02/2023 14:11 [facility] Alpha-1 g/dL 0.30 0.15 - 0.40 g/dL 12/02/2023 14:11 [facility] Alpha-2 % 12.4(H) 7.1 - 11.8 % 12/02/2023 14:11 [facility] Alpha-2 g/dL 0.90 0.50 - 1.00 g/dL 12/02/2023 14:11 [facility] Beta % 9.0 8.4 - 13.1 % 12/02/2023 14:11 [facility] Beta g/dL 0.60 0.60 - 1.20 g/dL 12/02/2023 14:11 [facility] Gamma % 21.9(H) 11.1 - 18.8 % 12/02/2023 14:11 [facility] Gamma g/dL 1.50 0.60 - 1.60 g/dL 12/02/2023 14:11 [facility] Monoclonal Prakash % 13.7(H) None Seen % 12/02/2023 14:11 [facility] Monoclonal Prakash g/dL 0.9(H) None Seen g/dL 12/02/2023 14:11 [facility] SPEP Comment Suspicious pattern, immunotyping to follow. 12/02/2023 14:11 [facility] Comment:See scanned/suppleme ntary report. 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 Recommend clinical correlation. Reviewed by: Sulaiman Liz MD 12/02/2023 1329 12/02/2023 14:11 EST [facility] Total Protein 6.9 6.3 - 8.2 g/dL 12/02/2023 14:11 EST [facility] Blood VENOUS BLOOD / Unknown 11/29/2023 11:25 EST 11/29/2023 17:11 EST Provider Outr Resulting Lab CHEMISTRY & BLOOD GAS ORDERABLES Performing Organization Address [facility] Co de Phone Number [facility] [address] [place] [address] * PROTEIN, TOTAL (11/29/2023 11:25 EST) Blood VENOUS BLOOD / Unknown 11/29/2023 11:25 EST 11/29/2023 17:11 EST Provider Outr Resulting Lab CHEMISTRY & BLOOD GAS ORDERABLES Performing Organization Address [facility] Co de Phone Number [facility] [address] [place] [address] * HOMOCYSTEINE (11/29/2023 11:25 EST) Homocysteine 13.3 5.0 - 13.9 umol/L 12/02/2023 14:25 EST [facility] Blood VENOUS BLOOD / Unknown 11/29/2023 11:25 EST 11/29/2023 17:21 EST Narrative [facility] - 12/02/2023 14:25 EST Reference [...] & BLOOD GAS ORDERABLES Performing Organization Address [facility] Co de Phone Number [facility] [address] [place] [address] * (ABNORMAL) HAPTOGLOBIN (11/29/2023 11:25 EST) Haptoglobin 216(H) 32 - 197 mg/dL 12/02/2023 10:41 EST [facility] Blood VENOUS BLOOD / Unknown 11/29/2023 11:25 EST 11/29/2023 17:11 EST Provider Outr Resulting Lab CHEMISTRY & BLOOD GAS ORDERABLES Performing Organization Address [facility] Co de Phone Number [facility] [address] [place] [address] * ANTI NUCLEAR AB (IAN), IFA (11/29/2023 11:25 EST) IAN Interpretation Negative Negative 2023 15:19 EST [facility] Comment:No titer performed, IAN Screen is negative. Blood VENOUS BLOOD / Unknown 11/29/2023 11:25 EST 11/29/2023 17:11 EST Narrative [facility] - 12/02/2023 15:19 EST Results were obtained with the INOVA NOVA Lite HEp-2 IAN Kit by indirect immunofluorescence. Provider Outr Resulting Lab IMMUNOLOGY A ND SEROLOGY ORDERABLES Performing Organization Address [facility] Co de Phone Number [facility] [address] [place] [phone] documented in this encounter Visit Diagnoses Not on filedocumented in this encounter Care Teams Grades 9 Through 12 Teacher Relationship Specialty Start Date End Date Unknown, Provider, PCP - General 05/22/20 documented as of this encounter
--- OUTSIDE RECORDS SUMMARY | 2024-07-24 02:21 | XMS_ITS | Encounter Summary ---
Author Organization [facility] Address [address] [place] [address] Care Team Providers Care Conveyor Operator Name Role Phone Unknown, Provider Primary Care Provider Reason for Visit * Reason Comments Sore Throat Encounter Details Date Type Department Care Team (Late st Contact Info) Description 05/22/2020 13:45 EDT Office Visit [facility] [address] [place] [address] Clementina Narayanan, ASE MASTER MECHANIC [address] [place] [id number] Acute pharyngitis, unspecified etiology (Primary Dx) [...] 13:45 EDT You were seen at the [facility] for sore throat. Rapid strep test is negative, antibiotics are not indicated. Sore throat symptoms can be caused by bacteria (like strep), viruses and post nasal drip. Non-bacterial causes of sore throat (viruses) tend to resolve in 7- 10 days. If you are experiencing post nasal drip, you may try an ihiq-rkk-jrwoezd nasal spray like Flonase per packaging instructions. Other symptomatic care includes; ie. warm salt water gargles, nevw-bue-gzbcwqj pain management medications like ibuprofen or Tylenol per dosage guidelines, ykfp-sdr-akjahqc throat lozenges/sprays like clorasept, hot tea or [...] information on these topics from the CDC. https://www.cdc.gov/coronavirus/2019-ncov/downloads/sokd-onum-3223-kMfI-seka-yet et.pdf You will be contacted whether your test is positive or negative. If your test is positive, you will receive further direction from your Primary Care Provider and/orthe [place] Department of Health. Likely you will be [...] to nguyen, stores, or meeting places to case picker or drop off items. ??? DO [...] go outside to collect items until the labor and delivery registered nurse has left the area. ??? SEPARATE YOURSELF [...] of 20 seconds or an alcohol based web design instructor containing at least 60% alcohol. 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 Express Care Chief Complaint(s): Sore [...] per his normal. 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 No known sick contacts. No recent travel. Social History Tobacco Use Smoking Status Former Smoker ??? Types: Cigarettes ??? Quit date: 05/22/1995 ??? Years since quittin.0 Smokeless Tobacco Never Used Reason for referral to [facility]: sore throat Where patient was examined: [facility] tent Screened from: [facility] to [facility] I have reviewed [...] Behavior: Behavior is cooperative. Assessment & Plan: eRji was seen today for sore throat. Diagnoses [...] TESTING (05/23/2020 11:44 EDT) Performing Lab [facility] 05/24/2020 21:17 EDT [facility] Comment: Please indicate the Triage Tier3 Test performed or [place] [address] COVID-19 rt-PCR Result Not Detected Negative 05/24/2020 21:17 EDT [facility] Comment: 2019-novel Coronavirus (2019-nCoV) [...] in accordance with CLIA regulations, [employer] [employer] (CAP) guidelines (Dec 24, 2019), and FDA guidance (Dec 05, 2019). This test is only for use under the Food and Drug Administration's Emergency Use Authorization. Swab ENTIRE NASOPHARYNX / Unknown 05/23/2020 11:44 EDT 05/23/2020 11:44 EDT Clementina Narayanan NP MICROBIOLOGY - GENER AL ORDERABLES [facility] [address] [place] [address] * POCT RAPID STREP SCREEN (05/22/2020 14:26 [...] daily. added in this encounter Care Teams Conveyor Operator Relationship Specialty Start Date End Date Unknown, Provider, PCP - General 05/22/20 documented as of this encounter
--- OUTSIDE RECORDS SUMMARY | 2024-07-24 02:21 | XMS_ITS | Encounter Summary ---
Author Organization [facility] Address [address] [place] [address] Care Team Providers Care Podopediatrician Name Role Phone Unknown, Provider Primary Care Provider Encounter Details Date Type Department Care Team (Late st Contact Info) Description 06/07/2022 Lab Requisition [facility] Pathology & Laboratory Medicine - [facility] [address] [place] [address] Outr Resulting Lab, Provider Social History Tobacco [...] PSA 1.0 <=6.5 ng/mL 06/08/2022 15:05 EDT [facility] Blood VENOUS BLOOD / Unknown 06/07/2022 11:25 EDT 06/07/2022 21:25 EDT Narrative [facility] - 06/08/2022 15:05 EDT NOTE: Serum PSA concentration should not be interpreted as absolute evidence for the presence or absence of malignant disease. Assayed on Siemens ADVIA Centaur XPT using chemiluminescent technology.??Values obtained by using different assay methods cannot be used interchangeably. Provider Outr Resulting Lab CHEMISTRY & BLOOD GAS ORDERABLES [facility] [address] [place] [address] documented in this encounter Visit Diagnoses Not on filedocumented in this encounter Care Teams Podopediatrician Relationship Specialty Start Date End Date Unknown, Provider, PCP - General 05/22/20 documented as of this encounter
[2024-07-24 13:33] LABS: Abs Immature Grans 0.01 10^3/uL (0.0-0.06); Absolute Basophil Count 0.02 10^3/uL (0.0-0.2); Absolute Eosinophil Count 0.09 10^3/uL (0.0-0.7); Absolute Neutrophil Count 3.33 10^3/uL (1.2-6.7); Basophils % 0.4 %; Eosinophils % 1.7 %; HCT 40.2 % (40.0-50.0); HGB 13.9 g/dL (13.5-17.5); Immature Grans % 0.2 %; Lymphocytes % 21.4 %; MCH 32.4 pg (27.0-33.0); MCHC 34.6 % (32.0-36.0); MCV 94 fL (80-95); MPV 9.8 fL (8.0-11.0); Monocytes % 11.7 %; Neutrophils % 64.6 %; Platelet Count 143 10^3/uL (130-400); RBC 4.29 10^6/uL (4.36-5.78); RDW 12.8 % (11.8-14.1); RDW-SD 44.1 fL; WBC 5.15 10^3/uL (4.4-10.8)
[2024-07-24 13:41] LABS: Hemoglobin A1C 6.1 % (<5.7)
[2024-07-24 14:27] LABS: Calculated LDL 29 mg/dL (<100); Cholesterol 107 mg/dL (<200); HDL Cholesterol 59 mg/dL (40-60); Triglyceride 97 mg/dL (<150)
[2024-07-24 22:59] LABS: PSA, Screening 0.8 ng/mL (<=6.5)
== END 2024-07-24 02:21 | disposition home or self-care (01) ==
LOC: LBO 02:20
PROVIDERS: Internal Medicine; PCP Physician Assistant; Visit Provider Physician Assistant
DX: I10 Essential (primary) hypertension (principal); R73.9 Hyperglycemia, unspecified; D64.9 Anemia, unspecified; Z12.5 Encounter for screening for malignant neoplasm of prostate
CPT/HCPCS: 36415; 80061; 84153; 83036; 85025

== ENCOUNTER 2025-07-01 04:17 | Outpatient (CLI) | payer MEDICARE, SELFPAY ==
[2025-07-01 11:49] LABS: Abs Immature Grans 0.06 10^3/uL (0.0-0.06); HCT 41.3 % (40.0-50.0); HGB 14.1 g/dL (13.5-17.5); Immature Grans % 0.7 %; MCH 32.3 pg (27.0-33.0); MCHC 34.1 % (32.0-36.0); MCV 95 fL (80-95); MPV 10.4 fL (8.0-11.0); Platelet Count 123 10^3/uL (130-400); RBC 4.36 10^6/uL (4.36-5.78); RDW 13.0 % (11.8-14.1); RDW-SD 45.3 fL; WBC 8.22 10^3/uL (4.4-10.8)
[2025-07-01 12:06] LABS: ALT 28 U/L (16-63); AST 13 U/L (15-37); Albumin 3.3 g/dL (3.4-5.0); Alkaline Phosphatase 62 U/L (46-116); Anion Gap 6.8 mmol/L (3-11); BUN 16 mg/dL (7-18); Bilirubin, Total 0.7 mg/dL (0.2-1.0); CO2 29.2 mmol/L (21.0-32.0); Calcium 8.1 mg/dL (8.5-10.1); Calculated LDL 46 mg/dL (<100); Chloride 102 mmol/L (98-107); Cholesterol 125 mg/dL (<200); Estimated GFR 69.57 (mL/min/1.73m2); Glucose 107 mg/dL (74-106); HDL Cholesterol 73 mg/dL (>or=40); Potassium 4.1 mmol/L (3.5-5.1); Sodium 138 mmol/L (136-145); Total Protein 7.0 g/dL (6.4-8.2); Triglyceride 32 mg/dL (<150)
[2025-07-01 18:33] LABS: PSA, Screening 1.2 ng/mL (<=6.5)
== END 2025-07-01 04:18 | disposition home or self-care (01) ==
PROVIDERS: PCP Internal Medicine; Visit Provider Internal Medicine
DX: N40.0 Benign prostatic hyperplasia without lower urinary tract symptoms (principal); I10 Essential (primary) hypertension
CPT/HCPCS: 36415; 80053; 80061; 84153; 85025